=== PATIENT | female | born 2000 | race Caucasian/White ===

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

== ENCOUNTER → 2018-01-27 16:57 | Outpatient (CLI) | payer OTHER, SELFPAY ==
[2018-01-27 18:06] LABS: Internal QC Validated? YES +Cl - CLEAR BKGD; Pregnancy, Urine Negative Negative
== END ==
PROVIDERS: Family Provider Family Medicine; PCP Family Medicine; Visit Provider Dermatology Pediatric Dermatology
DX: L70.0 Acne vulgaris (principal); Z79.899 Other long term (current) drug therapy
CPT/HCPCS: 81025

== ENCOUNTER → 2018-03-03 16:21 | Outpatient (CLI) | payer OTHER, SELFPAY ==
[2018-03-03 19:01] LABS: Internal QC Validated? YES +Cl - CLEAR BKGD; Pregnancy, Urine Negative Negative
== END ==
PROVIDERS: Family Provider Family Medicine; PCP Family Medicine; Visit Provider Physician Assistant
DX: L70.0 Acne vulgaris (principal); Z79.899 Other long term (current) drug therapy
CPT/HCPCS: 81025

== ENCOUNTER → 2018-04-15 10:34 | Outpatient (CLI) | payer OTHER, SELFPAY ==
[2018-04-15 12:23] LABS: Internal QC Validated? YES +Cl - CLEAR BKGD; Pregnancy, Urine Negative Negative
== END ==
PROVIDERS: Family Provider Family Medicine; PCP Family Medicine; Referring Provider Dermatology Pediatric Dermatology; Visit Provider Dermatology Pediatric Dermatology
DX: L70.0 Acne vulgaris (principal); Z79.899 Other long term (current) drug therapy
CPT/HCPCS: 81025

== ENCOUNTER → 2018-05-19 16:35 | Outpatient (CLI) | payer OTHER, SELFPAY ==
[2018-05-19 18:55] LABS: Internal QC Validated? YES +Cl - CLEAR BKGD; Pregnancy, Urine Negative Negative
--- OUTSIDE RECORDS SUMMARY | 2018-07-06 01:49 | XMS RPT_ITS ---
:2000 Author Organization OH[facility] Care Team Providers Name Role Phone Margo Durán PA-C Attending Unavailable Margo Durán-C Referring Unavailable Pat, Duarte Primary Care Unavailable Margo Durán PA-C Attending Unavailable Margo DuránC Referring Unavailable Pat, Duarte Primary Care Unavailable Margo Durán PA-C Attending Unavailable Margo DuránC Referring Unavailable Pat, Duarte Primary Care Unavailable Margo Durán PA-C Attending Unavailable Luis Armando, Margo PA-C Referring Unavailable Pat, Duarte Primary Care Unavailable Margo DuránC Attending Unavailable Pat, Duarte Primary Care Unavailable Lakeshia Floresen Attending Unavailable Lala Flores Referring Unavailable Pat Duarte Primary Care Unavailable Marog Durán PA-C Attending Unavailable Margo Durán PA-C Referring Unavailable Pat Duarte Primary Care Unavailable Lala Flores Attending Unavailable Lala Flores Referring Unavailable Duarte Stewart Primary Care Unavailable PROBLEMS PROBLEMS DATE TYPE CONDITION / CODE ATTENDING STATUS SOURCE 04/15/2018 Unknown L70.0 - Acne Lala Flores Active [facility] vulgaris / Community L70.0(ICD-10) Hospital Repository 01/27/2018 Unknown Z79.899 - Other Lala Flores Active [facility]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 If is still suspected, a first morning urine specimen should be collected 48 hours later and tested. Performed By: #### L400.7600 #### [facility] [address] [place], [place], [address] ,URINE Collected: 04/15/2018 Status: F Source: [place] 10:37 AM [facility] REPOSITORY TYPE CODE TESTS RESULT OUT OF REFERENCE UNITS RANGE LAB L400.8000 Negative Normal HCGUQUAL Negative Result Comment: Very dilute urine specimens, as indicated by a low specific gravity, may not contain telephone services sales representative levels of hCG. If is still suspected, a first morning urine specimen should be collected 48 hours later and tested. Performed By: #### L400.7600 #### [facility] [address] [place], [place], [id number] ,URINE Collected: 03/03/2018 Status: F Source: [place] 4:26 PM [facility] REPOSITORY TYPE CODE TESTS RESULT OUT OF REFERENCE UNITS RANGE LAB L400.8000 Negative Normal HCGUQUAL Negative Result Comment: Very dilute urine specimens, as indicated by a low specific gravity, may not contain telephone services sales representative levels of hCG. If is still suspected, a first morning urine specimen should be collected 48 hours later and tested. Performed By: #### L400.7600 #### [facility] [address] [facility] [address] [place], [address] ,URINE Collected: 01/27/2018 Status: F Source: [place] 5:01 PM [facility] REPOSITORY TYPE CODE TESTS RESULT OUT OF REFERENCE UNITS RANGE LAB L400.8000 Negative Normal HCGUQUAL Negative Result Comment: Very dilute urine specimens, as indicated by a low specific gravity, may not contain telephone services sales representative levels of hCG. If is still suspected, a first morning urine specimen should be collected 48 hours later and tested. Performed By: #### L400.7600 #### [facility] [address] [facility] [address] [facility] [address] [place], [place], [address] CBC W/DIFF, AUTOMATED Collected: 12/25/2017 Status: F Source: [place] 9:22 AM [facility] REPOSITORY TYPE CODE TESTS RESULT OUT OF RANGE REFERENCE UNITS LAB L100.1000 4.4-11.0 K/mm3 Low WBC 4.1 LAB L100.1200 4.2-5.4 M/mm3 Normal RBC 4.68 LAB L100.1300 12.0-15.0 g/dl Normal HGB 13.1 LAB L100.1400 37-47 % Normal HCT 41.3 LAB L100.1500 81-99 fL Normal MCV 88.2 LAB L100.1600 27.0-32.0 pg Normal MCH 28.0 LAB L100.1700 32-36 g/gl Low MCHC 31.7 LAB L100.1810 11.6-14.6 % Normal RDW CV 12.6 LAB L100.1820 35.1-43.9 fl Normal RDW SD 40.5 LAB L100.1900 150-450 K/mm3 Normal PLT 339 LAB L100.2000 6.2-12.0 fl Normal MPV 9.5 LAB L100.2100 47-70 % Low NEUT% 30.0 LAB L100.2200 19-41 % High LY% 44.6 LAB L100.2300 0-10 % High MONO% 22.5 LAB L100.2400 0-5 % Normal EO% 2.2 LAB L100.2500 0-1 % Normal BASO% 0.7 LAB L100.2550 0.0-0.9 % Normal IM GRAN % 0.000 Result Comment: IG% - Immature Granulocytes (promyelocytes, myelocytes and metamyelocytes) > 1% indicates that a LEFT SHIFT is Present. LAB L100.2620 2.0-7.7 X10 3/uL Low Absolute Neut 1.2 LAB L100.2720 0.83-4.51 X10 3/ul Normal Absolute Lymph 1.84 Performed By: #### L100.0100 #### [facility] [address] [place], [address] COMPREHENSIVE METABOLIC Collected: 12/25/2017 Status: F Source: [facility] 9:22 AM [facility] REPOSITORY TYPE CODE TESTS RESULT OUT OF RANGE REFERENCE UNITS LAB L501.0100 74-106 mg/dL Normal GLU 77 Result Comment: Please note revised GLUCOSE reference range effective 2017. LAB L501.1000 7-18 mg/dL Normal BUN 10 LAB L501.1100 0.55-1.02 mg/dL Normal CREAT,SERUM 0.83 Result Comment: The validity of the calculated GFR AND GFRAA in patients over 70 years has not been determined. Clinical correlation is essential. LAB L501.1110 >60 mL/min Normal EST GFR 93 Result Comment: Non- GFR Calc LAB L501.1115 >60 mL/min Normal EST GFR - AA 112 Result Comment: GFR Calc LAB L501.1300 10-20 RATIO Normal BUN/CRE 12.0 LAB L501.1500 6.4-8.2 g/dL T Normal PROT 7.5 LAB L501.1800 3.2-5.0 g/dL Normal ALB 3.5 LAB L501.1950 2.2-4.2 g/dL Normal GLOB 4.0 LAB L501.2000 0.9-2.4 RATIO Normal A/G 0.9 LAB L501.2200 8.5-10.1 mg/dL CA Normal 8.8 LAB L501.4100 15-37 U/L Normal AST 15 LAB L501.4305 45-117 U/L Normal ALK P 55 LAB L501.4405 13-56 U/L Normal ALT 18 LAB L501.4600 0.20-1.00 mg/dL T Normal BILI 0.50 LAB L501.5300 136-145 mmol/L NA Normal 142 LAB L501.5600 3.5-5.1 mmol/L K Normal 4.3 LAB L501.5900 98-107 mmol/L CL Normal 106 LAB L501.6100 21.0-32.0 mmol/L Normal CO2 29.0 LAB L501.6200 5-15 Normal GAP 7 Performed By: #### L500.4050, L500.4100 #### [facility] [address] [place], [place], [address] LIPID PROFILE Collected: 12/25/2017 Status: F Source: [place] 9:22 AM [facility] REPOSITORY TYPE CODE TESTS RESULT OUT OF RANGE REFERENCE UNITS LAB L501.4900 200 mg/dL High CHOL 222 Result Comment: <200 mg/dL Desirable 200-240 mg/dL Borderline >240 mg/dL High Risk LAB L501.5000 mg/dL Normal TRIG 77 Result Comment: The drugs N-Acetylcysteine and Metamizole may falsely depress this assay. Serum Triglycerides Reference Interval Normal <150 mg/dL Borderline high 150 - 199 mg/dL High 200 - 499 mg/dL Very High > or = 500 mg/dL LAB L501.6400 mg/dL Normal HDL 49 Result Comment: The drugs N-Acetylcysteine and Metamizole may falsely depress this assay. Reference Range HDL <40 mg/dL Low HDL Cholesterol HDL >or= 60 mg/dL High HDL Cholesterol LAB L501.6500 0-130 mg/dL High LDL 158 LAB L501.6600 5-40 mg/dL Normal VLDL 15 Performed By: #### L500.4050, L500.4100 #### [facility] [address] [place], [place], [address] ,URINE Collected: 12/23/2017 Status: F Source: [place] 3:42 PM [facility] REPOSITORY TYPE CODE TESTS RESULT OUT OF REFERENCE UNITS RANGE LAB L400.8000 Negative Normal HCGUQUAL Negative Result Comment: Very dilute urine specimens, as indicated by a low specific gravity, may not contain telephone services sales representative levels of hCG. If is still suspected, a first morning urine specimen should be collected 48 hours later and tested. Performed By: #### L400.7600 #### [facility] [address], [address] DOWNTIME REPORT Observed: 11/28/2017 Status: F Source: [place] 2:05 PM [facility] REPOSITORY [facility] Medical Records Department [address] [place] [address] Downtime Report MR#: [id number] Acct: [id number] Name: SUKI LAURENT Rep #: [id number] : 2000 17 From: Faizan Meier PCP: Duarte Stewart MD Status: REG CLI This patient was seen during an EMR downtime November 11, 2017 - November 18, 2017. This patient may have a combination of paper and electronic documentation or all paper documentation. All documentation is viewable within the e-chart portion of [facility] for each patient visit. ,URINE Collected: 11/11/2017 Status: F Source: [place] 3:17 PM [facility] REPOSITORY Order Comment: RESULT(S) PREVIOUSLY REPORTED ON MANUAL REQUISITION DURING DOWNTIME. TYPE CODE TESTS RESULT OUT OF REFERENCE UNITS RANGE LAB L400.8000 Negative Normal HCGUQUAL Negative Result Comment: Very dilute urine specimens, as indicated by a low specific gravity, may not contain telephone services sales representative levels of hCG. If is still suspected, a first morning urine specimen should be collected 48 hours later and tested. Performed By: #### L400.7600 #### [facility] [address] [place], [address] ,URINE Collected: 10/04/2017 Status: F Source: [place] 4:45 PM [facility] REPOSITORY TYPE CODE TESTS RESULT OUT OF REFERENCE UNITS RANGE LAB L400.8000 Negative Normal HCGUQUAL Negative Result Comment: Very dilute urine specimens, as indicated by a low specific gravity, may not contain telephone services sales representative levels of hCG. If is still suspected, a first morning urine specimen should be collected 48 hours later and tested. Performed By: #### L400.7600 #### [facility] [address] [place], [address] PROGRESS Observed: 07/31/2017 Status: COMPLETED Source: [place] 5:10 PM [facility] REPOSITORY HNO ID: [id number] Author: Maryam Sharma (Florian) JENARO Aquino Service: (none) Author Type: Nurse Practitioner Type: Progress Notes Filed: 07/31/2017 5:37 PM Note Text: Subjective HPI Patient presents with: Nasal Congestion: nasal drainage, cough x 2 weeks Denies hx of asthma, bronchitis, pneumonia or smoking. Denies any otc treatment for symptoms. Review of Systems Constitutional: Positive for fever (low grade). Negative for chills and malaise/fatigue. HENT: Positive for congestion, ear pain (pressure), sinus pain and sore throat. Eyes: Negative for discharge and redness. Respiratory: Positive for cough. Negative for hemoptysis, sputum production, shortness of breath and wheezing. Gastrointestinal: Negative for abdominal pain, diarrhea, nausea and vomiting. Skin: Negative for rash. Neurological: Positive for headaches. No past medical history on file. No past surgical history on file. ALLERGIES Review of patient's allergies indicates no known allergies. MEDICATIONS No prescriptions on file. No family history on file. Social History Substance Use Topics - Smoking status: Never Smoker - Smokeless tobacco: Never Used - Alcohol use Not on file Objective Physical Exam Constitutional: She is well-developed, well-nourished, and in no distress. HENT: Head: Normocephalic. Right Ear: Tympanic membrane, external ear and ear canal normal. Left Ear: Tympanic membrane, external ear and ear canal normal. Nose: Mucosal edema present. Right sinus exhibits maxillary sinus tenderness and frontal sinus tenderness. Left sinus exhibits maxillary sinus tenderness and frontal sinus tenderness. Mouth/Throat: Posterior oropharyngeal erythema (PND) present. Eyes: Conjunctivae are normal. Neck: Normal range of motion. Neck supple. Cardiovascular: Normal rate, regular rhythm and normal heart sounds. Pulmonary/Chest: Effort normal. No respiratory distress. She has no wheezes. She has rhonchi (faint scattered rhonchi in b/l lower lobes). Abdominal: Soft. She exhibits no distension. There is no tenderness. Lymphadenopathy: She has no cervical adenopathy. Skin: Skin is warm and dry. No rash noted. Nursing note and vitals reviewed. ASSESSMENT/PLAN: 1. Sinobronchitis - ICD9: 473.9, 490, ICD10: J32.9, J40 - Will begin treatment with Augmentin 875 mg PO BID for 10 days - The patient should also be given OTC decongestants prn, OTC cough and cold meds as needed, warm salt water gargles, throat lozenges and/or OTC throat spray as needed and nasal saline gtts and suction prn for the first 5-7 days of treatment. - Supportive care with plenty of fluids, rest, and analgesia prn. - Follow up in 3-5 days if symptoms persist or worsen. Prescription instructions reviewed with patient as applicable. Patient advised if symptoms do not improve or if symptoms worsen sooner, to contact their primary care physician. Potential red flag symptoms discussed with the patient. Reviewed appropriate action plan to take if red flag symptoms occur. Patient agreeable to treatment plan. Maryam Aquino CNP ALLERGIES ALLERGIES No Allergies Records FoundENCOUNTERS ENCOUNTERS ADMIT/DISCHARGE ACCOUNT ADMITTING ENCOUNTER LOCATION SOURCE NUMBER CLASS 05/19/2018 [id number] [facility] ing:[facility]LAB Repository 04/15/2018 [id number] [facility] ing:[facility]LAB Repository 03/03/2018 [id number] [facility] ing:MTLAB Repository 01/27/2018 [id number] [facility] ing:MTLAB Repository 12/25/2017 [id number] [facility] ing:LAB.FUTUR Repository E 12/23/2017 [id number] [facility] ing:MTLAB Repository 11/11/2017 [id number] [facility] ing:MTLAB Repository 10/04/2017 [id number] [facility] ing:LAB Repository 07/31/2017/08/06/19 [id number] [address]ulatory [address] Repository PAYERS PAYERS ENCOUNTER GUARANTOR PAYER SUBSCRIBER SOURCE 05/19/2018 SUKI Rasmussen Primary Insurance:Valery ROQUEERMUHKARLIEUNK [place] [id number] [facility] [id number] [place], [place] [id number] Repository [address]Vgd: (304) Date:6239-56-20WT [phone] (HP) [address] [place] [phone]: 05/19/2018 Secondary NOT GIVENUNK Madan Insurance:SELF PAY Community [facility]: Effective Repository Date:2018-05-19 04/15/2018 SUKI Rasmussen Primary Insurance:UMR EDWARD INDERMUHLEUNK Madan [id number] BRII [id number] Number: [place], [place] [id number] Repository [address]Jrf: (304) Date:1286-59-18EA [phone] () [address] [place] [phone]: 04/15/2018 Secondary NOT GIVENUNK [place] Insurance:SELF PAY Community [facility] Number: Effective Repository Date:2018-04-15 03/03/2018 SUKI Rasmussen Primary Insurance:UMR EDWARD INDERMUHLEUNK Madan [id number] BRII [id number] [facility] Number: [place], [place] [id number] Repository [address]Nxx: (304) Date:1140-48-77DJ [phone] () [address] [place] [phone]: 03/03/2018 Secondary NOT GIVENUNK Madan Insurance:SELF PAY Community [facility] Number: Effective Repository Date:2018-03-03 01/27/2018 SUKI Rasmussen Primary Insurance:UMR EDWARD INDERMUHLEUNK [place] [id number] BRII [id number] [facility] Number: [place], [place] [id number] Repository [address]Rfc: (304) Date:6235-91-48YU [phone] () [address] [place] [phone]: 01/27/2018 Secondary NOT GIVENUNK Madan Insurance:SELF PAY Community [facility] Number: Effective Repository Date:2018-01-27 12/25/2017 SUKI Rasmussen Primary Insurance:UMR EDWARD INDERMUHLEUNK Madan [id number] BRII [id number] [facility] Number: [place], [place] [id number] Repository [address]Zzt: (304) Date:1021-52-64QO [phone] () [address] [place] [phone]: 12/25/2017 Secondary NOT GIVENUNK [place] Insurance:SELF PAY Community [facility] Number: Effective Repository Date:2017-12-23 12/23/2017 SUKI Rasmussen Primary Insurance:UMR EDWARD INDERMUHLEUNK [place] [id number] BRII [id number] [facility] Number: [place], [place] [id number] Repository [address]Eui: (304) Date:7106-71-40VU [phone] () [address] [place] [phone]: 12/23/2017 Secondary NOT GIVENUNK Madan Insurance:SELF PAY Community [facility] Number: Effective Repository Date:2017-12-23 11/11/2017 SUKI Rasmussen Primary Insurance:UMR EDWARD INDERMUHLEUNK [place] [id number] BRII [id number] Number: [place], [place] [id number] Repository [address]Utb: (304) Date:0322-51-64XN [phone] () [address] [place] [phone]: 11/11/2017 Secondary NOT GIVENUNK [place] Insurance:SELF PAY Community [facility] Number: Effective Repository Date:2017-11-11 10/04/2017 SUKI Rasmussen Primary Insurance:UMR EDWARD INDERMUHLEUNK Madan [id number] BRII [id number] Number: [place], [place] [id number] Repository [address]Sut: (304) Date:9076-34-65IN [phone] () [address] [place] [phone]: 10/04/2017 Secondary NOT GIVENUNK Madan Insurance:SELF PAY [facility]: Effective Repository Date:2017-10-04
== END ==
PROVIDERS: Family Provider Family Medicine; PCP Family Medicine; Referring Provider Physician Assistant; Visit Provider Physician Assistant
DX: L70.0 Acne vulgaris (principal)
CPT/HCPCS: 81025

== ENCOUNTER → 2023-04-25 | Outpatient (CLI) | payer BC, SELFPAY ==
[2023-04-25 09:56] LABS: Absolute Lymphocyte Count 2.02 X10^3/uL (0.83-4.51); Absolute Neutrophil Count 3.7 X10^3/uL (2.0-7.7); Basophil# 0.07 X10^3/uL; Eosinophils% 1.5 % (0-5); Hematocrit 38.7 % (37-47); Hemoglobin 12.7 g/dL (12.0-15.0); Lymphocyte # 2.02 X10^3/ul (0.83-4.51); Lymphocyte % 30.1 % (19-41); Mean Corp Hgb Conc 32.8 g/dL (32-36); Mean Corpuscular Hgb 28.6 pg (27.0-32.0); Mean Corpuscular Volume 87.2 fL (81-99); Mean Platelet Vol. 8.9 fl (6.2-12.0); Monocyte# 0.81 X10^3/uL; Monocyte% 12.1 % (0-10); NRBC Flagged by Analyzer 0 % (0-5); Neutrophil % 55.2 % (47-70); Platelet Count 400 K/mm3 (150-450); RBC Distribution Width CV 11.5 % (11.6-14.6); RBC Distribution Width SD 36.5 fl (35.1-43.9); Red Blood Count 4.44 M/mm3 (4.2-5.4); White Blood Count 6.7 K/mm3 (4.4-11.0)
[2023-04-25 10:56] LABS: HIV - WCH Non-Reactive (Nonreactive); Hepatitis B Surface Antigen Non-Reactive (Nonreactive); Hepatitis C Antibody Non-Reactive (Nonreactive); Rubella IgG Reactive (Nonreactive); Syphilis Antibodies Non-reactive
[2023-04-30 08:12] LABS: Chlamydia By Nucleic Acid AMP Negative (Negative); Gonococcus By Nucleic Acid AMP Negative (Negative)
== END | disposition home or self-care (01) ==
PROVIDERS: PCP Family Medicine; Referring Provider Advanced Practice Midwife; Visit Provider Advanced Practice Midwife
DX: Z34.90 Encounter for supervision of normal pregnancy, unspecified, unspecified trimester (principal); Z3A.00 Weeks of gestation of pregnancy not specified
CPT/HCPCS: 36415; 85025; 86703; 86762; 86780; 86803; 86850; 86900; 86901; 87086; 87340; 87491; 87591

== ENCOUNTER 2023-05-24 15:28 | Day surgery (SDC) | payer BC, SELFPAY ==
[2023-05-24] VITALS (8 sets, daily range): BP systolic 87–105; BP diastolic 58–72; PULSE 66–89; RESP 16–18; TEMP 36.4–37; O2SAT 97–100; BMI 18.7
--- NOTE | 2023-05-24 | POC_PTH ---
PATIENT: SUKI BLAKELY [place] [facility] [place][id number] AGE/SX: 23/F ROOM: RE05/24/[address]: Dr. Carolynn Ochoa MD : 2000 BED: DIS: 05/24/2023 SPEC #: [id number] RECD: 05/24/23 19:52 STATUS: AIDAN VILLARREAL #: [id number] BREANA: 05/24/23 00:[address]: Carolynn Ochoa DEPT: SURGICAL PATHOLOGY RECD BY: Vasquez Morin ENTERED: 05/27/23 09:37 SP TYPE: PROD CONC OTHR DR: Dr. Duarte Stewart MD Tissues: Product of conception, NOS Procedures: Surgery Specimen Level IV HEADER OPERATION: Dilation and Curettage, Suction PRE-OP DIAGNOSIS: Missed TISSUE SUBMITTED: Products of conception MICROSCOPIC DIAGNOSIS Endometrium, curettage: Chorionic villi, decidualized stroma and trophoblastic cells (products of conception). AM:donna 05/29/2023 MICROSCOPIC DESCRIPTION Slides are reviewed. GROSS DESCRIPTION Received fresh is one container labeled with the patient's name and designated products of conception. The specimen consists of multiple irregular fragments of pink hemorrhagic araiza soft tissue that in aggregate measure 10.0 x 8.0 x 2.0 cm. tissue is not identified. Eligibility Manager tissue is submitted for Anora study. Eligibility Manager tissue is also submitted in one cassette. / AM:donna 05/27/2023 TC:5 CPT: [id number] ADDENDUM ADDENDUM ADDENDUM ADDENDUM ADDENDUM ADDENDUM ADDENDUM ADDENDUM 06/26/2023 09:01 ADDENDUM 06/26/2023 09:01 ADDENDUM 06/26/2023 09:01 ADDENDUM 06/26/2023 09:01 ADDENDUM 06/26/2023 09:01 ANORA MICROARRAY CHROMOSOME ANALYSIS WITH PARENTAL SUPPORT RESULT: Normal male MICROARRAY RESULT: arr(1-22)x2,(XY)x1 CLINICAL INTERPRETATION: Normal male result. Please see complete report in e-chart or EMR
[2023-05-24] MEDS: Doxycycline 100 MG CAPSULE PO (15:53)
[2023-05-24] MEDS: Lactated Ringers 1,000 ML 15 ML IV (15:58)
[2023-05-24 16:08] LABS: Hematocrit 35.4 % (37-47); Hemoglobin 11.8 g/dL (12.0-15.0); Mean Corp Hgb Conc 33.3 g/dL (32-36); Mean Corpuscular Hgb 29.1 pg (27.0-32.0); Mean Corpuscular Volume 87.4 fL (81-99); Mean Platelet Vol. 8.8 fl (6.2-12.0); Platelet Count 321 K/mm3 (150-450); RBC Distribution Width CV 11.9 % (11.6-14.6); RBC Distribution Width SD 37.9 fl (35.1-43.9); Red Blood Count 4.05 M/mm3 (4.2-5.4); White Blood Count 8.5 K/mm3 (4.4-11.0)
--- NOTE | 2023-05-24 18:43 | HP.PCM_ITS ---
History and Physical Intake Vital Signs 04/25/2308:59 05/24/2308:41 05/24/2308:42 Height 5 ft 3 in 5 ft 3 in 5 ft 3 in Weight: 110 lb 2 oz BMI 19.5 BP 110/73 Intake Visit Reasons: 13 WK OB Jet Inspector Required: No Is patient in pain?: No Allergies No Known Allergies Allergy (Verified 05/24/23 08:41) Medications multivitamin no.47-iron fum 27 mg-folate no.1 1 mg-dha 300 mg capsule (PNV-DHA) cap PO 04/19/23 [History Confirmed 05/24/23] Last Menstrual Period: 02/22/23 Zika: Zika virus screening: Negative : No PFSH PFSH Family History Grandfather DiabetesMother Melanoma, Onset Age: 35 Social History adopted: No household members: spouse current occupational status: employed current occupation: [employer] current occupational exposures/hazards: No pets and animals: Yes pets and animals: dog(s) history of recent travel: [place] ([place]) out of state: Yes out of country: No sexually active: Yes Smoking Status: Never smoker alcohol intake: never substance use type: does not use diet: lactose free well-balanced diet: daily or most days caffeine: No eating out: 1-3 times/week during the past year weight has: remained stable what type of physical activity do you participate in: none katerin/baptism: Restorationist seatbelt use: always do you feel safe at home: Yes additional social history: - [employer]- [employer] History 1 Elective abortions Hx Para 0 Spontaneous abortions Hx # Term Pregnancies Ectopic pregnancies Hx # Pregnancies Multiple births # of living children HPI 13 WK OB Details: SUKI BLAKELY is a 23 year old who presents for routine OB visit. upon evaluation miscarriage diagnosed with no FHT measuring behind and no FHT seen. confirmed with Dr alfredo and amadeo taylor. OB Visit JYOTSNA Calculator Estimated Delivery Date Method Current WG Current Estimate 11/29/23 LMP (Certain) 13w 0d Expected Delivery Route/Plan Labor Preferences- CB/BF classes: [] labor support person: [] labor intervention preferences: [] pain management options preferred: [] cut cord/dad catch: [] : [] PP control planned: [] discussed possible routes of delivery and associated risks: [] special requests: [] Specific Issue/Plans Covid status: [] Flu vaccine: [] Tdap vaccine: [] Rhogam: [] LARC form signed: [] Problem list reviewed and updated with the most current plan of care details and appropriate orders placed. Relevant counseling for the gestational age provided. Continue routine care and follow up unless otherwise noted in visit notes/problem list details Initial Weight: Not Recorded Date -?-?-?-?-?-?-?-?-?-?-?-?- EGA Weight BP Urine Prot -?-?-?-?-?-?-?-?-?-?-?-?- Glucose FHR FuHt Pres Dilation -?-?-?-?-?-?-?-?-?-?-?-?- Effaced St Visit Note 04/25/23-?-?-?-?-?-?-?-?-?-?-?-?- 8w 6d 108 lb 8 oz 98/65 -?-?-?-?-?-?-?-?-?-?-?-?- 175 -?-?-?-?-?--?-?-?-?-?-?-?- KW-CRL 17. cost with dates. declines NIPT 05/24/23-?-?-?-?-?-?-?-?-?-?-?-?- 13w 0d 110 lb 2 oz 110/73 Negative -?-?-?-?-?-?-?-?-?-?-?-?- Negative 0 -?-?-?-?-?-?-?-?-?-?-?-?- LC- no HR, debris in uterus.no outline of fetus. +fluid around uterus. confirmed with JV.will obtain D&C consent signed. will be NPO. forget me not provided. LC- no HR, debris in uterus.no outline of fetus. +fluid around uterus. confirmed with JV.consulted and she discussed options and plan fo care with pt.will obtain D&C consent signed. will be NPO. forget me not provided. ACOG First Trimester First Trimester: Second Trimester Second Trimester: Signs and Symptoms of Labor, Selecting a care provider, Reproductive Life Planning & Contreception, Care Planning, Depression/Anxiety and Intimate Partner Violence; Discussed Tobacco Cessation Third Trimester Third Trimester: Pain Management Plans, Labor support person(s), Immediate Larc, Signs and Symptoms of Preeclampsia, Feeding Yes , [place] Education and Family Medical Leave or Disability Forms ROS ROS Const Reports system reviewed and no additional complaints, except as documented Card Reports system reviewed and no additional complaints, except as documented Resp Reports system reviewed and no additional complaints, except as documented GI Reports system reviewed and no additional complaints, except as documented, Reports nausea Reports system reviewed and no additional complaints, except as documented Musc Reports system reviewed and no additional complaints, except as documented all other systems reviewed and negative Exam Exam Const General: cooperative, healthy appearing, comfortable HENMT Head: normal to inspection Nose: external nose normal Face and sinus: normal facial exam Neck Neck: normal visual inspection, full ROM, no lymphadenopathy Thyroid: thyroid normal Chest Chest palpation & inspection: normal inspection of the chest Resp Effort & Inspection: normal respiratory effort GI Inspection: normal to inspection soft NTTP Extrem General: pedal edema Results POC Urinalysis 2 Dip (Clinic) Office Urine Glucose Negative Last Edit by Raven Pitt MA on 05/24/23 08:47 Office Urine Protein Negative Last Edit by Raven Pitt MA on 05/24/23 08:47 Coding Level of Care Code OB Routine Diagnoses Missed O02.1 Assessment and Plan Assessment and Plan (1) Missed : Status: Acute Comment: 13 weeks missed AB, to obtain D&C. desires genetics Orders: Orders POC Urinalysis 2 Dip (Clinic) Today Plan Details Additional Comments: D&C today NPO consent signed. O positive blood type
--- NOTE | 2023-05-24 18:58 | PCM.OPRPT ---
Problems Associated Problem List Diagnoses (1) Missed : Report of Operation Date of Procedure: 05/24/23 Pre-Operative Diagnosis: see problem list Post-Operative Diagnosis: same Surgery/Procedure Performed:: Suction dilation and curettage Description of Surgical Findings:: no FHT present, Nonviable 13 weeks Surgeon: Carolynn Ochoa sas programmer: None Type of Anesthesia: Local MAC Special Medications: none Specimen's removed: POC Drains: none Estimated Blood Loss (mL): 200 Fluids Replaced: crystalloid Description of Procedure: Patient was taken to the operating room and placed under MAC local anesthesia. She was prepped and draped in the normal sterile fashion the dorsal lithotomy position. Bladder was drained of clear urine and anterior lip of the cervix was grasped and the uterus sounded to 11. Cervix was progressively dilated to allow passage of a 11mm suction curette. Progressive passes were made removing the retained products of conception without complication. Sharp curettage confirmed complete removal of the retained products. All instruments were removed from the vagina and excellent hemostasis was noted and the patient was taken to recovery in stable condition. Grafts/Implants Used: none Procedure Start Time: 19:09 Procedure Stop Time: 19:29 Complications none Admit VTE Documentation VTE Present on Admission: No VTE Mechan Device Prophylaxis: SCD's Procedures Urinary/Genital [id number]: [id number] Surg Trtmt missed Ab, 1TM
--- NOTE | 2023-05-24 18:59 | DCINST_ITS ---
Discharge Instructions Diet Discharge Diet: No restrictions Activity Discharge Activity: Return to Normal Activity, May Shower and May Take a Tub Bath (after 1 week) May resume sexual activity in: 1-2 weeks Weight Bearing Status: Weight bearing as tolerated Lifting Restrictions: none Dressing / Incision Call your doctor if you observe: Fever of 101 or Higher, Using more than 1 pad per hour, Shortness of breath and Uncontrolled pain Follow Up Care Please Follow Up With: Carolynn Ochoa MD When: Call [phone] to schedule appointment. Test Results: Test results from this visit will be discussed in further detail at your follow- up appointment, if applicable. Discharge Plan Admission Attending Provider: Carolynn Ochoa Primary Care Provider: Duarte Stewart Discharge Orders/Prescriptions Prescriptions: No Action PNV-DHA 27 mg iron-1 mg -300 mg capsule 1 cap PO DAILY pyridoxine (vitamin B6) 50 mg tablet 50 mg PO DAILY Referrals / Follow Up: Duarte Stewart MD [Primary Care Provider] - Disposition Disposition (needs filled in before D/C Order can be placed): Home, Self Care
[2023-05-24] MEDS: miSOPROStol 200 MCG Tablet (19:25)
[2023-05-24] MEDS: Oxytocin 10 UNITS/ML Vial (19:31)
[2023-05-24 23:04] LABS: Pathology Specimen OB SEE PATHOLOGY REPORT
== END 2023-05-24 20:40 | disposition home or self-care (01) ==
LOC: SDC 15:30 → AC 15:31
PROVIDERS: PCP Family Medicine; Referring Provider Obstetrics & Gynecology; Visit Provider Obstetrics & Gynecology
PROC: (CPT 59820; principal; 2023-05-24 17:45)
DX: O02.1 Missed abortion (principal)
CPT/HCPCS: 59820; 01965; 85027; 86850; 86900; 86901; 88305; J7120; A4216; J2405

== ENCOUNTER → 2023-05-27 | Outpatient (CLI) | payer BC, SELFPAY | END | disposition home or self-care (01) | LOC: PAVLAB 09:54 | PROVIDERS: PCP Family Medicine; Referring Provider Obstetrics & Gynecology; Visit Provider Obstetrics & Gynecology | DX: O02.1 Missed abortion (principal) | CPT/HCPCS: 36415 ==

== ENCOUNTER → 2023-10-04 | Outpatient (CLI) | payer BC, SELFPAY ==
[2023-10-04 13:32] LABS: Vitamin D,25 Hydroxy 95.3 ng/mL
[2023-10-04 13:53] LABS: Thyroid Stim Hormone (TSH) 0.58 uIU/mL (0.358-3.74)
[2023-10-10 11:09] LABS: HPV APTIMA, High Risk Negative (Negative)
== END | disposition home or self-care (01) ==
PROVIDERS: PCP Family Medicine; Referring Provider Obstetrics & Gynecology; Visit Provider Obstetrics & Gynecology
DX: Z12.4 Encounter for screening for malignant neoplasm of cervix (principal); Z13.29 Encounter for screening for other suspected endocrine disorder; Z13.21 Encounter for screening for nutritional disorder
CPT/HCPCS: 36415; 82306; 84443; 88175; G0145

== ENCOUNTER → 2024-02-04 | Outpatient (CLI) | payer BC, SELFPAY ==
[2024-02-04 16:27] LABS: T4 Free Direct 0.81 ng/dL (0.76-1.46); Thyroid Stim Hormone (TSH) 0.749 uIU/mL (0.358-3.740)
== END | disposition home or self-care (01) ==
LOC: LAB 14:40
PROVIDERS: PCP Family Medicine; Referring Provider Advanced Practice Midwife; Visit Provider Advanced Practice Midwife
DX: N92.6 Irregular menstruation, unspecified (principal)
CPT/HCPCS: 36415; 84439; 84443

== ENCOUNTER → 2024-02-07 | Outpatient (CLI) | payer BC, SELFPAY ==
--- NOTE | 2024-02-07 16:25 | US_ITS ---
EXAM: US PELVIS TRANSABDOMINAL AND TRANSVAGINAL, COMPLETE CLINICAL INDICATION: Infertility/irregular menses TECHNIQUE: Transabdominal and transvaginal pelvic ultrasound was performed with grayscale and color Doppler imaging. Transvaginal imaging was used for better evaluation of the endometrium and adnexa. COMPARISON: No relevant prior studies available. FINDINGS: UTERUS/CERVIX: Retroverted uterus. There is no uterine mass. The uterus measures 6.2 x 4.5 x 3.8 cm. The endometrial stripe measures 0.3 cm in thickness. RIGHT OVARY: Numerous small follicles in the periphery of the right ovary. Blood flow is present in the right ovary. The right ovary measures 3.2 x 1.9 x 1.7 cm. LEFT OVARY: Numerous small follicles in the periphery of the left ovary. Blood flow is present in the left ovary. The left ovary measures 2.8 x 2.3 x 2.1 cm. FREE FLUID: None. BLADDER: Unremarkable as visualized. Wall is normal thickness for degree of distention. US/Pelvic w/ Transvaginal IMPRESSION: 1. Retroverted uterus. 2. Numerous small follicles in the periphery of the ovaries bilaterally may be due to polycystic ovary disease. Electronically Signed: Christopher Maldonado MD at 0:00 EDT ,
== END | disposition home or self-care (01) ==
PROVIDERS: PCP Family Medicine; Referring Provider Advanced Practice Midwife; Visit Provider Advanced Practice Midwife
DX: N92.6 Irregular menstruation, unspecified (principal)
CPT/HCPCS: 76830; 76856

== ENCOUNTER → 2024-03-02 | Outpatient (CLI) | payer BC, SELFPAY ==
[2024-03-04 08:12] LABS: PROGESTERONE 9.1 ng/mL (.)
== END | disposition home or self-care (01) ==
LOC: LAB 12:25
PROVIDERS: PCP Family Medicine; Referring Provider Advanced Practice Midwife; Visit Provider Advanced Practice Midwife
DX: E28.2 Polycystic ovarian syndrome (principal)
CPT/HCPCS: 36415; 84144

== ENCOUNTER → 2024-04-13 | Outpatient (CLI) | payer BC, SELFPAY ==
[2024-04-13 10:28] LABS: hCG Titer Quant., Serum 9 mIU/mL (1-3)
== END | disposition home or self-care (01) ==
PROVIDERS: PCP Family Medicine; Referring Provider Obstetrics & Gynecology; Visit Provider Obstetrics & Gynecology
DX: N91.2 Amenorrhea, unspecified (principal)
CPT/HCPCS: 36415; 84702

== ENCOUNTER → 2024-04-15 | Outpatient (CLI) | payer BC, SELFPAY ==
[2024-04-15 09:18] LABS: hCG Titer Quant., Serum 3 mIU/mL (1-3)
== END | disposition home or self-care (01) ==
LOC: LAB 08:24
PROVIDERS: PCP Family Medicine; Referring Provider Obstetrics & Gynecology; Visit Provider Obstetrics & Gynecology
DX: Z34.90 Encounter for supervision of normal pregnancy, unspecified, unspecified trimester (principal)
CPT/HCPCS: 36415; 84702

== ENCOUNTER → 2024-07-29 | Outpatient (CLI) | payer BC, SELFPAY ==
[2024-07-29 09:42] LABS: hCG Titer Quant., Serum 35 mIU/mL (1-3)
== END | disposition home or self-care (01) ==
PROVIDERS: PCP Family Medicine; Referring Provider Obstetrics & Gynecology; Visit Provider Obstetrics & Gynecology
DX: Z32.02 Encounter for pregnancy test, result negative (principal); Z87.59 Personal history of other complications of pregnancy, childbirth and the puerperium
CPT/HCPCS: 36415; 84702

== ENCOUNTER → 2024-07-31 | Outpatient (CLI) | payer BC, SELFPAY ==
[2024-07-31 11:48] LABS: hCG Titer Quant., Serum 40 mIU/mL (1-3)
== END | disposition home or self-care (01) ==
LOC: LAB 09:13
PROVIDERS: PCP Family Medicine; Referring Provider Advanced Practice Midwife; Visit Provider Advanced Practice Midwife
DX: Z34.90 Encounter for supervision of normal pregnancy, unspecified, unspecified trimester (principal); Z87.59 Personal history of other complications of pregnancy, childbirth and the puerperium
CPT/HCPCS: 36415; 84702

== ENCOUNTER → 2024-08-03 | Outpatient (CLI) | payer BC, SELFPAY ==
[2024-08-03 16:32] LABS: hCG Titer Quant., Serum 10 mIU/mL (1-3)
== END | disposition home or self-care (01) ==
LOC: LAB 15:52
PROVIDERS: PCP Family Medicine; Referring Provider Advanced Practice Midwife; Visit Provider Advanced Practice Midwife
DX: N91.2 Amenorrhea, unspecified (principal); Z87.59 Personal history of other complications of pregnancy, childbirth and the puerperium
CPT/HCPCS: 36415; 84702

== ENCOUNTER → 2024-10-30 | Outpatient (CLI) | payer BC, SELFPAY ==
[2024-10-30 17:22] LABS: Thyroid Stim Hormone (TSH) 0.715 uIU/mL (0.300-4.200)
[2024-11-03 16:08] LABS: Anti-Cardiolipin Ab, IgG, Qn < 9 GPL U/mL (0-14); Anti-Cardiolipin Ab, IgM, Qn < 9 MPL U/mL (0-12); Beta-2-Glycoprotein I IgA <9 (0-25); Beta-2-Glycoprotein I IgG <9 (0-20); Beta-2-Glycoprotein I IgM <9 (0-32); Dilute Prothrombin Time (dPT) 32.9 sec (0.0-47.6); Dilute Russell Viper Venom 32.9 sec (0.0-47.0); Interpretation Comment: (.); PTT-LA 34.5 sec (0.0-43.5); Thrombin Time 19.1 sec (0.0-23.0); dPT Confirm Ratio 0.98 Ratio (0.00-1.34)
== END | disposition home or self-care (01) ==
PROVIDERS: Obstetrics & Gynecology; PCP Family Medicine; Referring Provider Obstetrics & Gynecology; Visit Provider Obstetrics & Gynecology
DX: O02.1 Missed abortion (principal); N96 Recurrent pregnancy loss
CPT/HCPCS: 36415; 84443; 86146; 86147

== ENCOUNTER → 2025-03-11 | Outpatient (CLI) | payer OTHER, SELFPAY ==
[2025-03-11 16:03] LABS: hCG Titer Quant., Serum 36 mIU/mL (<9 non-preg)
== END | disposition home or self-care (01) ==
LOC: LAB 14:55
PROVIDERS: PCP Family Medicine; Referring Provider Advanced Practice Midwife; Visit Provider Advanced Practice Midwife
DX: Z34.90 Encounter for supervision of normal pregnancy, unspecified, unspecified trimester (principal)
CPT/HCPCS: 36415; 84702

== ENCOUNTER → 2025-03-13 | Outpatient (CLI) | payer OTHER, SELFPAY ==
--- OUTSIDE RECORDS SUMMARY | 2025-03-13 10:59 | XMS RPT_ITS | CCD ---
Author Organization [facility] Care Team Providers Care Sandwich Wrapper Name Role Phone Dr. Valentin Morrissey Primary Care Provider Dr. Valentin Morrissey Referring Provider ESPINOZA Armstrong Attending Provider [phone] ESPINOZA Taylor Attending Provider [phone] Dr. Carolynn Ochoa Attending Provider [phone] Dr. Carolynn Ochoa Referring Provider [phone] Dr. Carolynn Ochoa Other Provider [phone] Dr. Valentin Morrissey Primary Care Provider Dr. Valentin Morrissey Referring Provider Dr. Laurel Gill Attending Provider [phone] Valentin Morrissey MD Primary Care Provider VALENTIN MORRISSEY Primary Care Unavailable VALENTIN MORRISSEY Attending Unavailable VALENTIN MORRISSEY Primary Care Unavailable Valentin Morrissey Primary Care Provider VALENTIN MORRISSEY Primary Care Unavailabl Dr. Valentin Egan MD Primary Care Provider Dr. Carolynn Ochoa MD Attending Provider [phone] Dr. Carolynn Ochoa MD Referring Provider Dr. Valentin Morrissey MD Referring Provider Dr. Laurel Gill DO Attending Provider Dr. Laurel Gill DO Referring Provider Nathaniel DORAN, Ana Attending Provider Nathaniel DORAN, Ana Referring Provider Pat ESTRADA, Dr. Ramachandran Primary Care Provider Dr. Laurel Gill DO Attending Provider Dr. Laurel Gill DO Referring Provider Nathaniel DORAN, Ana Attending Provider [phone] Nathaniel DORAN, Ana Referring Provider [phone] Pat ESTRADA, Dr. Ramachandran Referring Provider Km DORAN, Amadeo Attending Provider Gabriela ESTRADA, Dr. Pradhan Attending Provider Dr. Carolynn Ochoa MD Referring Provider Ana Armstrong Attending Unavailable Ana Armstrong Referring Unavailable Pat, Valentin Primary Care Unavailable Pat, Valentin Primary Care Unavailable Ana Armstrong Attending Unavailable Ana Armstrong Referring Unavailable Pat, Valentin Primary Care Unavailable Carolynn Ochoa Attending Unavailable Carolynn Ochoa Referring Unavailable Pat, Valentin Primary Care Unavailable Carolynn Ochoa Attending Unavailable Carolynn Ochoa Referring Unavailable Laurel Gill Attending Unavailabl e Vande VelLaurel morocho Referring Unavailabl e Pat, Valentin Primary Care Unavailable Ana Armstrong Attending Unavailable Pat, Valentin Primary Care Unavailable Pat, Valentin Referring Unavailable Pat, Valentin Primary Care Unavailable Ana Armstrong Attending Unavailable Pat, Valentin Referring Unavailable Vande VelLaurel morocho Attending Unavailabl e Pat, Valentin Referring Unavailable Pat, Valentin Primary Care Unavailable Amadeo Taylor Attending Unavailable Pat, Valentin Referring Unavailable Pat, Valentin Primary Care Unavailable Ana Armstrong Attending Unavailable Ana Armstrong Referring Unavailable Pat, Valentin Primary Care Unavailable Ana Armstrong Attending Unavailable Ana Armstrong Referring Unavailable Pat, Valentin Primary Care Unavailable Carolynn Ochoa Attending Unavailable Carolynn Ochoa Referring Unavailable Pat, Valentin Primary Care Unavailable Ana Armstrong Attending Unavailable Ana Armstrong Referring Unavailable Pat, Valentin Primary Care Unavailable Medications Current Medications Medication Drug Class(es) Dates Sig (Normalized) Sig (Original) Multivit 55-Bbbi-Cowpxo 1-Dha (Pnv-Dha) 27 mg iron-1 mg -300 mg capsule (6 sources) Start: 04-19-2023 Multivit 27-Ygao-Qigypc 1-Dha (Pnv-Dha) 27 mg iron-1 mg -300 mg capsule Active 1 NMA PO DAILY April 19, 2023 1:00am Start: 04-19-2023 Multivit 47-Ir on-Folate 1-Dha (Pnv-Dha) 27 mg iron-1 mg -300 mg capsule Active 1 NMA PO DAILY April 19, 2023 12:00am Start: 04-19-2023 take 1 capsule by mo uth once daily Multivit 98-Opmy-Dcsrdf 1-Dha (Pnv-Dha) 27 mg iron-1 mg -300 mg capsule Active 1 CAP PO DAILY April 19, 2023 1:00am Start: 04-19-2023 take 1 capsule by mo uth once daily Multivit 41-Damz-Paphnt 1-Dha (Pnv-Dha) 27 mg iron-1 mg -300 mg capsule Active 1 CAP PO DAILY April 19, 2023 12:00am Start: 04-19-2023 Multivit 47-Ir on-Folate 1-Dha (Pnv-Dha) 27 mg iron-1 mg -300 mg capsule Active CAP PO April 19, 2023 12:00am Vit-Fe Fumarate-FA ( PO) (3 sources) Vit-Fe Fumarate-FA ( PO) Take by mouth. 0 Active valACYclovir 1000 mg oral tablet (1 source) Herpesvirus Nucleoside Analog DNA Polymerase Inhibitor, Herpes Simplex Virus Nucleoside Analog DNA Polymerase Inhibitor, Herpes Zoster Virus Nucleoside Analog DNA Polymerase Inhibitor Start: 4 End: 4 take 1 tablet by mouth three times daily valACYclovir (VALTREX) 1 gram tablet Indications: Herpes zoster without complication Take 1 tablet by mouth three times a day for 7 days. 21 tablet 0 12/20/2023 12/27/2023 Active vitamin b6 50 mg oral tablet (5 sources) Start: 3 take 1 tablet by mouth once daily Pyridoxine (Vitamin B6) 50 mg tablet Active 50 mg PO DAILY May 24, 2023 1:00am Completed/Discontinued Medications Medication Drug Class(es) Dates Sig (Normalized) Sig (Original) Norethindrone-Ethin Estradiol (12 sources) Estrogen Start: 08-17-2021 End: 09-24-2022 Norethindrone-Ethin Estradiol (Alyacen 1/35 (28)) 1-35 mg-mcg tablet Discontinued 1 {tbl} PO DAILY August 17, 2021 3:27pm September 24, 2022 10:05am take continuously Start: 08-17-2021 End: 09-24-2022 Norethindrone-Ethin Estradio l (Alyacen 1/35 (28)) 1-35 mg-mcg tablet Discontinued 1 {tbl} PO DAILY August 17, 2021 2:27pm September 24, 2022 9:05am take continuously Start: 08-17-2021 End: 09-24-2022 take [id number] ug by mouth once daily Norethindrone-Ethin Estradiol (Alyacen 1/35 (28)) 1-35 mg-mcg tablet Discontinued 1 TABLET PO DAILY August 17, 2021 3:27pm September 24, 2022 10:05am take continuously Start: 08-17-2021 End: 09-24-2022 take [id number] ug by mouth once daily Norethindrone-Ethin Estradiol (Alyacen 1/35 (28)) 1-35 mg-mcg tablet Discontinued 1 TABLET PO DAILY August 17, 2021 2:27pm September 24, 2022 9:05am take continuously Start: 08-17-2021 End: 08-17-2021 Norethindrone-Ethin Estradio l (Alyacen 1/35 (28)) 1-35 mg-mcg tablet Discontinued 1 {tbl} PO DAILY August 17, 2021 1:00am August 17, 2021 3:38pm Start: 08-17-2021 End: 08-17-2021 Norethindrone-Ethin Estradio l (Alyacen 1/35 (28)) 1-35 mg-mcg tablet Discontinued 1 {tbl} PO DAILY August 17, 2021 12:00am August 17, 2021 2:38pm Start: 08-17-2021 End: 08-17-2021 take [id number] ug by mouth once daily Norethindrone-Ethin Estradiol (Alyacen 1/35 (28)) 1-35 mg-mcg tablet Discontinued 1 TABLET PO DAILY August 17, 2021 1:00am August 17, 2021 3:38pm Start: 08-17-2021 End: 08-17-2021 take [id number] ug by mouth once daily Norethindrone-Ethin Estradiol (Alyacen 35 (28)) 1-35 mg-mcg tablet Discontinued 1 TABLET PO DAILY August 17, 2021 12:00am August 17, 2021 2:38pm letrozole 2.5 mg oral tablet (2 sources) Aromatase Inhibitor Start: 03-06-2024 End: 03-11-2024 Letrozole 2.5 mg tablet Discontinued 2.5 mg PO DAILY 5 March 06, 2024 12:00am March 10, 2024 12:00am March 11, 2024 12:08am take between days 3 and 7 of menstrual cycle Problems Active Problems Problem Classification Problem Date Documented Date Episodic/Chronic Anxiety disorders (12 sources) Anxiety; Translations: [Anxiety disorder, unspecified] Onset: 06-16-2021 08-17-2021 Chronic Female infertility (2 sources) Female infertility associated with anovulation; Translations: [Female infertility associated with anovulation] 05-22-2024 Chronic Comment on above: HSG Immunizations and screening for infectious disease (5 sources) Immunization due; Translations: [Encounter for immunization] Onset: 10-10-2023 10-10-2023 Episodic Menstrual disorders (5 sources) Irregular periods; Translations: [Irregular menstruation, unspecified] Onset: 02-13-2024 02-24-2024 Chronic Comment on above: TVUS- possible PCOSt hyroid labs-nlOAR labs- elevated AMHSA-declined at this time Other acquired deformities (3 sources) Scoliosis of thoracic spine; Translations: [Scoliosis, unspecified] Onset: 01-09-2017 03-25-2022 Chronic Other complications of (6 sources) Missed miscarriage; Translations: [Missed ] 05-24-2023 Episodic Comment on above: 13 weeks missed AB, to obtain D&C.desires genetics Other complications of (5 sources) Missed ; Translations: [Missed ] Onset: 11-04-2024 05-24-2023 Episodic Other endocrine disorders (3 sources) Polycystic ovary syndrome; Translations: [Polycystic ovarian syndrome] 2024 Chronic Other endocrine disorders (1 source) Polycystic ovarian syndrome; Translations: [Polycystic ovarian syndrome] Onset: 03-31-2024 Chronic Other nutritional; endocrine; and metabolic disorders (6 sources) Intolerance to lactose; Translations: [Lactose intolerance, unspecified] 04-19-2023 Chronic Other nutritional; endocrine; and metabolic disorders (3 sources) Lactose intolerance, unspecified; 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] 04-25-2023 Chronic Other and delivery including normal (20 sources) Normal ; Translations: [Encounter for supervision of normal first , unspecified trimester] Onset: 08-13-2024 04-19-2023 Episodic Comment on above: , JYOTSNA 11/29/23, H usband Eduard declines genetic & c arrier testing Other screening for suspected conditions (not mental disorders or infectious disease) (14 sources) Patient encounter status; Translations: [Encounter for screening for lipoid disorders] Onset: 10-10-2023 10-10-2023 Episodic Other upper respiratory disease (6 sources) Seasonal allergy; Translations: [Other seasonal allergic rhinitis] 04-19-2023 Chronic Other upper respiratory disease (3 sources) Other seasonal allergic rhinitis; Translations: [Allergic rhinitis, cause unspecified] 04-25-2023 Chronic Residual codes; unclassified (3 sources) H/O: miscarriage; Translations: [Personal history of other complications of , childbirth and the puerperium] 07-27-2024 Episodic Comment on above: plan to consult with RGI on saturday.recommended obtaining APL panel and HSG abstain from a for 2-3 months in order to obtain APL panel first. stated understanding and will obtain in october.is tracking cycles and plans to abstain/condom use during fertile windows. is taking PNVwill continue low inflammatory diet/pcos diet for overall support. Viral infection (1 source) Herpes zoster without complication; Translations: [Zoster without complications] 12-20-2023 Episodic Past or Other Problems Problem Classification Problem Date Documented Date Episodic/Chronic Contraceptive and procreative management (3 sources) Oral contraception status; Translations: [Encounter for surveillance of contraceptive pills] Onset: 07-06-2020 03-25-2022 Episodic Results Test Name Value Interpretation Reference Range Facility Anticardiolipin IgG, IgMon 0 11-03-2024 ANTICARDIO IgG < 9 Normal 0-14 [facility] Comment on above: Result Comment: Nega tive: <15 Indeterminate: 15 - 20 Low-Med Positive: >20 - 80 High Positive: >80 Performed By: #### L 501.9520, L4500.0100, L3100.8410, L3410.1999 ####[facility] [address] [place], [place], [id number] Anticardio.IgM < 9 Normal 0-12 [facility] Comment on above: Result Comment: Nega tive: <13 Indeterminate: 13 - 20 Low-Med Positive: >20 - 80 High Positive: >80 Performed at: - [facility] [id number] Computer Salesperson Retail: Amadou Mckeon MD, Phone: [phone] Performed at: [facility] [id number] Computer Salesperson Retail: Chito Martins PhD, Phone: [phone] Performed By: #### L 501.9520, L4500.0100, L3100.8410, L3410.1999 ####[facility] [address] [place], [place], [id number] Beta-2 Glycoprot IgG, A, 11-03-2024 B2 GLYCO I IGA <9 Normal 0-25 [facility] Comment on above: Result Comment: Resu lt Units: GPI IgA units The reference interval reflects a 3SD or 99th percentile interval, which is thought to represent a potentially clinically significant result in accordance with the International Consensus Statement on the classification criteria for definitive antiphospholipid syndrome (APS). J Thromb Haem 2006;4:295-306. Performed By: #### L 501.9520, L4500.0100, L3100.8410, L3410.1999 ####[facility] [address] [place], [address] B2 GLYCO I IGG <9 Normal 0-20 [facility] Comment on above: Result Comment: Resu lt Units: GPI IgG units The reference interval reflects a 3SD or 99th percentile interval, which is thought to represent a potentially clinically significant result in accordance with the International Consensus Statement on the classification criteria for definitive antiphospholipid syndrome (APS). J Thromb Haem 2006;4:295-306. Performed By: #### L 501.9520, L4500.0100, L3100.8410, L3410.1999 ####[facility] [address] [place], [address] B2 GLYCO I IGM <9 Normal 0-32 [facility] Comment on above: Result Comment: Resu lt Units: GPI IgM units The reference interval reflects a 3SD or 99th percentile interval, which is thought to represent a potentially clinically significant result in accordance with the International Consensus Statement on the classification criteria for definitive antiphospholipid syndrome (APS). J Thromb Haem 2006;4:295-306. Performed By: #### L 501.9520, L4500.0100, L3100.8410, L3410.1999 ####[facility] [address] [place], [address] Lupus Anticoagulant Compon 0 - aPTT Coag (Bld) [Time] 34.5 s Normal 0.0-43.5 [facility] Comment on above: Performed By: #### L 501.9520, L4500.0100, L3100.8410, L3410.1999 ####[facility] [address] [place], [address] DILUTE PT (dPT) 32.9 sec Normal 0.0-47.6 [facility] Comment on above: Performed By: #### L 501.9520, L4500.0100, L3100.8410, L3410.1999 ####[facility] [address] [place], [address] dPT Conf. Ratio 0.98 Ratio Normal 0.00-1.34 [facility] Comment on above: Performed By: #### L 501.9520, L4500.0100, L3100.8410, L3410.1999 ####[facility] [address] [place], [address] DRVVT 32.9 sec Normal 0.0-47.0 [facility] Comment on above: Performed By: #### L 501.9520, L4500.0100, L3100.8410, L3410.1999 ####[facility] [address] [place], [address] Interpretation Comment: Normal . [facility] Comment on above: Result Comment: No l upus anticoagulant was detected. Performed By: #### L 501.9520, L4500.0100, L3100.8410, L3410.1999 ####[facility] [address] [place], [address] THROMBIN TIME 19.1 sec Normal 0.0-23.0 [facility] Comment on above: Performed By: #### L 501.9520, L4500.0100, L3100.8410, L3410.1999 ####[facility] [address] [place], [address] Dilute Toro's viper venom timeOrdered By: Laurel Kimball on 10-30-2024 dRVVT Coag (PPP) [Time] 32.9 s 0.0-47.0 [facility] Serum beta 2 glycoprotein 1 IgA antibody detectionOrdered By: Laurel Kimball on 10-30-2024 Beta 2 glycoprotein 1 IgA Ql (S) <9 0-25 [facility] Comment on above: Result Units: GPI Ig A unitsThe reference interval reflects a 3SD or 99th percentileinterval, which is thought to represent a potentiallyclinically significant result in accordance with theInternational Consensus Statement on the classificationcriteria for definitive antiphospholipid syndrome (APS). JThromb Haem 2006;4:295-306. Serum beta 2 glycoprotein 1 IgG antibody detectionOrdered By: Laurel Kimball on 10-30-2024 Beta 2 glycoprotein 1 IgG Ql (S) <9 0-20 [facility] Comment on above: Result Units: GPI Ig G unitsThe reference interval reflects a 3SD or 99th percentileinterval, which is thought to represent a potentiallyclinically significant result in accordance with theInternational Consensus Statement on the classificationcriteria for definitive antiphospholipid syndrome (APS). JThromb Haem 2006;4:295-306. Serum beta 2 glycoprotein 1 IgM antibody detectionOrdered By: Laurel Kimball on 10-30-2024 Beta 2 glycoprotein 1 IgM Ql (S) <9 0-32 [facility] Comment on above: Result Units: GPI Ig M unitsThe reference interval reflects a 3SD or 99th percentileinterval, which is thought to represent a potentiallyclinically significant result in accordance with theInternational Consensus Statement on the classificationcriteria for definitive antiphospholipid syndrome (APS). JThromb Haem 2006;4:295-306. Serum cardiolipin IgG antibo dy assay by immunoassay (units/volume)Ordered By: Laurel Kimball on 10-30-2024 Cardiolipin IgG IA Qn (S) < 9 GPL U/mL 0-14 [facility] Comment on above: Negative: <15 Indete rminate: 15 - 20 Low-Med Positive: >20 - 80 High Positive: >80 TSH DL <= 0.005 mIU/L QnOrde red By: Laurel Kimball on 10-30-2024 TSH Qn 0.715 uIU/mL 0.300-4.200 [facility] Thrombin timeOrdered By: Arleth Kimball on 10-30-2024 Thrombin time Coag (PPP) [Time] 19.1 sec 0.0-23.0 [facility] Thyroid Stim Hormone (TSH)on 10-30-2024 TSH 0.715 uIU/mL Normal 0.300-4.200 [facility] Comment on above: Performed By: #### L 501.9520, L4500.0100, L3100.8410, L3410.2000 ####[facility] [address] [place], [address] Project Management Intern Office Visit Reporton 08-21-2024 Project Management Intern Office Visit Report [facility] [address], [address] [place] [address] OFFICE VISIT Date of Service: 08/21/24 MR#: [id number] Acct: [id number] Name: SUKI LEE Rep #: [id number] : 2000 Provider: ESPINOZA blanchard Age/Sex: 24/F [place] [facility] [place]: Signed Intake Vital Signs 04/30/24 14:00 08/21/24 08:58 Height 5 ft 3 in 5 ft 3 in Weight: 111 lb 8 oz BMI 19.7 BP 107/70 Intake Visit Reasons: Discuss SAB Rock Crusher Required: No Is patient in pain?: No Allergies No Known Allergies Allergy (Verified 08/21/24 08:56) Medications ???Medication ???Instructions ???Recorded ???Confirmed ???Type multivitamin no.47-iron fum 27 1 cap PO DAILY 04/19/23 08/21/24 H istory mg-folate no.1 1 mg-dha 300 mg capsule (PNV-DHA) pyridoxine (vitamin B6) 50 mg 50 mg PO DAILY 05/24/23 08/21/24 H istory tablet Post menopausal: No Patient : No : No Control [facility]: [facility] History Early stage of Supervision of normal first Surgical History S/P D C (status post dilation and curettage) Family History Grandfather Diabetes Mother Melanoma, Onset Age: 35 Social History adopted: No household members: spouse current occupational status: employed current occupation: [employer] current occupational exposures/hazards: No pets and animals: Yes pets and animals: dog(s) history of recent travel: [place] ([place]) out of state: Yes out of country: No sexually active: Yes Smoking Status: Never smoker alcohol intake: never substance use type: does not use diet: lactose free well-balanced diet: daily or most days caffeine: No eating out: 1-3 times/week during the past year weight has: remained stable what type of physical activity do you participate in: none katerin/confucianist: Congregational seatbelt use: always do you feel safe at home: Yes additional social history: - Eduard- [employer] HPI Discuss SAB Details: SUKI LEE is a 24 year old who presents for follow up miscarriage management. this is her 3rd miscarriage since last year. first was at 13 weeks, second miscarriage at 5 weeks and this is around 4-5 weeks from LMP. hcg was trending to negative. APL blood work has not been obtain since was achieved prior to 3 months. hsg not yet obtained secondary to . she is presenting today to review options and management. since february she has been using dietary and supplements (elio-chiro) measures to control her PCOS which has resulted in under 35 day cycles and more consistent cycles. she has a holistic provider appointment in september and RGI appointment scheduled for saturday. History 2 Elective abortions Hx Para 0 Spontaneous abortions 2 Hx # Term Pregnancies Ectopic pregnancies Hx # Pregnancies Multiple births # of living children 0 Past Pregnancies Del. Date Name GA/Weeks Outcome Route Bth Weight Gen Labor Lgth Anesthesia Del [facility] Provider FOB 05/24/23 13 spontaneous Exam Const General: cooperative Resp Effort Inspection: normal respiratory effort GI Inspection: normal to inspection Other: declined, no longer bleeding. Extrem General: normal to inspection Psych Appearance: grossly normal Other: appropriately tearful Coding Level of Care Code Off vis,est,level 3 Diagnoses History of miscarriage Z87.59 Additional Codes PHQ-9 (36464) Assessment and Plan Assessment and Plan (1) History of miscarriage: Status: Acute Comment: plan to consult with RGI on saturday. recommended obtaining APL panel and HSG abstain from a for 2-3 months in order to obtain APL panel first. stated understanding and will obtain in october. is tracking cycles and plans to abstain/condom use during fertile windows. is taking PNV will continue low inflammatory diet/pcos diet for overall support. 08/21/24 4977 Date Amadeo Taylor CNM Cosigner Signature: Date (if applicable) CC: Normal [facility] HCG ( test) QlOrder ed By: Ana Armstrong on 08-03-2024 Human Chorionic Gonadotropin, Quant 10 mIU/mL High <4 [facility] Comment on above: hCG levels with Gest ational AgeGestational Age hCG mIU/mL (IU/L)0.2 - 1 week 5 - 501-2 weeks 50 - 5002-3 weeks 100 - 73685-8 weeks 500 - 257942-8 weeks 1000 - 960980-8 weeks 24383 - 100,0006-8 weeks 35112 - 200,0002-3 months 67690 - 100,000 Serum human chorionic gonado tropin detection for pregnancyOrdered By: Ana Armstrong on 08-03-2024 HCG ( test) Ql 10 mIU/mL High <4 [facility] Comment on above: hCG levels with Gest ational AgeGestational Age hCG mIU/mL (IU/L)0.2 - 1 week 5 - 501-2 weeks 50 - 5002-3 weeks 100 - 03881-3 weeks 500 - 007538-3 weeks 1000 - 661799-0 weeks 33193 - 100,0006-8 weeks 85286 - 200,0002-3 months 97762 - 100,000 hCG Titer Quant., Serumon HCG QUANT. 10 mIU/mL High 1-3 [facility] Comment on above: Result Comment: hCG levels with Gestational Age Gestational Age hCG mIU/mL (IU/L) 0.2 - 1 week 5 - 50 1-2 weeks 50 - 500 2-3 weeks 100 - 5000 3-4 weeks 500 - 67336 4-5 weeks 1000 - 62880 5-6 weeks 35717 - 100,000 6-8 weeks 21736 - 200,000 2-3 months 01089 - 100,000 Performed By: #### L 700.8000 #### [facility] [place], [address] HCG ( test) QlOrder ed By: Ana Armstrong on 07-31-2024 Human Chorionic Gonadotropin, Quant 40 mIU/mL High <4 [facility] Comment on above: hCG levels with Gest ational AgeGestational Age hCG mIU/mL (IU/L)0.2 - 1 week 5 - 501-2 weeks 50 - 5002-3 weeks 100 - 83064-9 weeks 500 - 989871-5 weeks 1000 - 891091-5 weeks 81711 - 100,0006-8 weeks 69268 - 200,0002-3 months 15560 - 100,000 Serum human chorionic gonado tropin detection for pregnancyOrdered By: Ana Armstrong on 07-31-2024 HCG ( test) Ql 40 mIU/mL High <4 [facility] Comment on above: hCG levels with Gest ational AgeGestational Age hCG mIU/mL (IU/L)0.2 - 1 week 5 - 501-2 weeks 50 - 5002-3 weeks 100 - 44736-6 weeks 500 - 158874-6 weeks 1000 - 117499-7 weeks 76308 - 100,0006-8 weeks 55117 - 200,0002-3 months 94147 - 100,000 hCG Titer Quant., Serumon HCG QUANT. 40 mIU/mL High 1-3 [facility] Comment on above: Result Comment: hCG levels with Gestational Age Gestational Age hCG mIU/mL (IU/L) 0.2 - 1 week 5 - 50 1-2 weeks 50 - 500 2-3 weeks 100 - 5000 3-4 weeks 500 - 27041 4-5 weeks 1000 - 19230 5-6 weeks 31154 - 100,000 6-8 weeks 10887 - 200,000 2-3 months 69117 - 100,000 Performed By: #### L 700.8000 #### [facility] [address] [place], [address] HCG ( test) QlOrder ed By: Laurel Kimball on 07-29-2024 Human Chorionic Gonadotropin, Quant 35 mIU/mL High <4 [facility] Comment on above: hCG levels with Gest ational AgeGestational Age hCG mIU/mL (IU/L)0.2 - 1 week 5 - 501-2 weeks 50 - 5002-3 weeks 100 - 46363-2 weeks 500 - 870433-5 weeks 1000 - 046510-5 weeks 64342 - 100,0006-8 weeks 14717 - 200,0002-3 months 34352 - 100,000 Serum human chorionic gonado tropin detection for pregnancyOrdered By: Laurel Kimball on 07-29-2024 HCG ( test) Ql 35 mIU/mL High <4 [facility] Comment on above: hCG levels with Gest ational AgeGestational Age hCG mIU/mL (IU/L)0.2 - 1 week 5 - 501-2 weeks 50 - 5002-3 weeks 100 - 92597-7 weeks 500 - 091124-2 weeks 1000 - 214500-9 weeks 28835 - 100,0006-8 weeks 69243 - 200,0002-3 months 40307 - 100,000 hCG Titer Quant., Serumon HCG QUANT. 35 mIU/mL High 1-3 [facility] Comment on above: Order Comment: viabi lity Result Comment: hCG levels with Gestational Age Gestational Age hCG mIU/mL (IU/L) 0.2 - 1 week 5 - 50 1-2 weeks 50 - 500 2-3 weeks 100 - 5000 3-4 weeks 500 - 86477 4-5 weeks 1000 - 49203 5-6 weeks 45256 - 100,000 6-8 weeks 39852 - 200,000 2-3 months 45466 - 100,000 Performed By: #### L 700.8000 #### [facility] Laboratory [facility] [place], [address] Project Management Intern Office Visit Reporton 04-30-2024 Project Management Intern Office Visit Report [facility]'s [address], [address] [place] [address] OFFICE VISIT Date of Service: 04/30/24 MR#: [id number] Acct: [id number] Name: SUKI LEE Rep #: [id number] : 2000 Provider: Dr. Laurel Savage DO Age/Sex: 24/F [place] [facility] [place]: Signed Intake Vital Signs 02/24/24 14:29 04/30/24 13:58 04/30/24 14:00 Height 5 ft 3 in 5 ft 3 in 5 ft 3 in Weight: 111 lb 6 oz BMI 19.7 BP 107/71 Intake Visit Reasons: miscarriage follow up Rock Crusher Required: No Is patient in pain?: No Allergies No Known Allergies Allergy (Verified 04/30/24 13:58) Medications ???Medication ???Instructions ???Recorded ???Confirmed ???Type multivitamin no.47-iron fum 27 1 cap PO DAILY 04/19/23 04/30/24 History mg-folate no.1 1 mg-dha 300 mg capsule (PNV-DHA) pyridoxine (vitamin B6) 50 mg 50 mg PO DAILY 05/24/23 04/30/24 History tablet Post menopausal: No Patient : No : [facility] Medical History Early stage of Supervision of normal first Surgical History S/P D C (status post dilation and curettage) Family History Grandfather Diabetes Mother Melanoma, Onset Age: 35 Social History adopted: No household members: spouse current occupational status: employed current occupation: [employer] current occupational exposures/hazards: No pets and animals: Yes pets and animals: dog(s) history of recent travel: [place] ([place]) out of state: Yes out of country: No sexually active: Yes Smoking Status: Never smoker alcohol intake: never substance use type: does not use diet: lactose free well-balanced diet: daily or most days caffeine: No eating out: 1-3 times/week during the past year weight has: remained stable what type of physical activity do you participate in: none katerin/confucianist: Congregational seatbelt use: always do you feel safe at home: Yes additional social history: - Eduard- [employer] HPI miscarriage follow up Details: SUKI LEE is a 24 year old who presents for miscarriage follow up. This time she was about 5 weeks from her missed period, unlike her last miscarriage which was at 13 weeks (last may) She has stopped bleeding and her last quant on 04/15 was at a non- value. She is interested in finding out why she miscarried twice. History 2 Elective abortions Hx Para 0 Spontaneous abortions 2 Hx # Term Pregnancies Ectopic pregnancies Hx # Pregnancies Multiple births # of living children 0 Past Pregnancies Del. Date Name GA/Weeks Outcome Route Bth Weight Infant Gen Labor Lgth Anesthesia Del [facility] Provider FOB 05/24/23 13 spontaneous ROS Const ROS Unobtainable: All systems reviewed are unremarkable except as noted in H Resp Resp: Reports system reviewed and no additional complaints, except as documented; Denies cough GI GI: Reports as per HPI Psych Psych: Reports system reviewed and no additional complaints, except as documented Exam Const General: cooperative, healthy appearing, comfortable and no acute distress Resp Effort Inspection: normal respiratory effort Skin General: no rashes or lesions noted Psych Appearance: grossly normal Speech and Movement: speech and movement normal Coding Level of Care Code Off vis,est,level 3 Diagnoses Missed O02.1 PCOS (polycystic ovarian syndrome) E28.2 Irregular menstrual bleeding N92.6 Assessment and Plan Assessment and Plan (1) Missed : Status: Acute Comment: 13 weeks missed AB, to obtain D C. desires genetics (2) PCOS (polycystic ovarian syndrome): Status: Acute (3) Irregular menstrual bleeding: Status: Acute Comment: TVUS- possible PCOS thyroid labs-nl OAR labs- elevated AMH SA-declined at this time Orders: Orders Beta-2 Glycoprot IgG, A, M Today N96 - Recurrent loss, O02.1 - Missed Lupus Anticoagulant Comp Today N96 - Recurrent loss, O02.1 - Missed Anticardiolipin IgG, IgM Today N96 - Recurrent loss, O02.1 - Missed Thyroid Stim Hormone (TSH) Today O02.1 - Missed Plan plan is to start with APL labs and then HSG after her next period 04/30/24 4280 Date Laurel Briscoe Signature: Date (if applicable) CC: Normal [facility] HCG ( test) QlOrder ed By: Carolynn Ochoa on 04-15-2024 Human Chorionic Gonadotropin, Quant 3 mIU/mL <4 [facility] Comment on above: hCG levels with Gest ational AgeGestational Age hCG mIU/mL (IU/L)0.2 - 1 week 5 - 501-2 weeks 50 - 5002-3 weeks 100 - 98117-3 weeks 500 - 248498-2 weeks 1000 - 205376-9 weeks 50332 - 100,0006-8 weeks 47536 - 200,0002-3 months 01125 - 100,000 hCG Titer Quant., Serumon HCG QUANT. 3 mIU/mL Normal 1-3 [facility] Comment on above: Result Comment: hCG levels with Gestational Age Gestational Age hCG mIU/mL (IU/L) 0.2 - 1 week 5 - 50 1-2 weeks 50 - 500 2-3 weeks 100 - 5000 3-4 weeks 500 - 77368 4-5 weeks 1000 - 08897 5-6 weeks 38227 - 100,000 6-8 weeks 93929 - 200,000 2-3 months 79637 - 100,000 Performed By: #### L 700.8000 ####[facility] [address] [facility]. [place], [place], [address] hCG Titer Quant., Serumon HCG QUANT. 9 mIU/mL High 1-3 [facility] Comment on above: Performed By: #### L 700.8000 #### [facility] Laboratory [address] [facility] [place], [place], [address] PROGESTERONE 4317on 03-04-20 24 PROGESTERONE 9.1 ng/mL Normal . [facility] Comment on above: Order Comment: N [id number] Result Comment: Foll icular phase 0.1 - 0.9 Luteal phase 1.8 - 23.9 Ovulation phase 0.1 - 12.0 First trimester 11.0 - 44.3 Second trimester 25.4 - 83.3 Third trimester 58.7 - 214.0 Postmenopausal 0.0 - 0.1 Performed at: [facility] - [facility] [id number] Computer Salesperson Retail: Chito Martins PhD, Phone: [phone] Performed By: #### L 918.6955 #### [facility] Laboratory [address] [place], [address] Project Management Intern Office Visit Reporton 02-24-2024 Project Management Intern Office Visit Report [facility]'s [address], [address] [place] [address] OFFICE VISIT Date of Service: 02/24/24 MR#: [id number] Acct: [id number] Name: SUKI LEE Rep #: [id number] : 2000 Provider: ESPINOZA Chávez ams Age/Sex: 24/F Location[place] [facility] [place] Status: Signed Intake Vital Signs 01/31/24 14:15 02/24/24 14:25 02/24/24 14:29 Height 5 ft 3 in 5 ft 3 in 5 ft 3 in Weight: 112 lb BMI 19.8 BP 87/54 L Intake Visit Reasons: follow up PCOS confirmation Rock Crusher Required: No Is patient in pain?: No Allergies No Known Allergies Allergy (Verified 02/24/24 14:29) Medications ???Medication ???Instructions ???Recorded ???Confirmed ???Type multivitamin no.47-iron fum 27 1 cap PO DAILY 04/19/23 02/24/24 History mg-folate no.1 1 mg-dha 300 mg capsule (PNV-DHA) pyridoxine (vitamin B6) 50 mg 50 mg PO DAILY 05/24/23 02/24/24 History tablet PFSH Medical History Supervision of normal first Surgical History S/P D C (status post dilation and curettage) Family History Grandfather Diabetes Mother Melanoma, Onset Age: 35 Social History adopted: No household members: spouse current occupational status: employed current occupation: [employer] current occupational exposures/hazards: No pets and animals: Yes pets and animals: dog(s) history of recent travel: [place] ([place]) out of state: Yes out of country: No sexually active: Yes Smoking Status: Never smoker alcohol intake: never substance use type: does not use diet: lactose free well-balanced diet: daily or most days caffeine: No eating out: 1-3 times/week during the past year weight has: remained stable what type of physical activity do you participate in: none katerin/confucianist: Congregational seatbelt use: always do you feel safe at home: Yes additional social history: - Eduard- [employer] HPI follow up PCOS confirmation Details: SUKI LEE is a 24 year old who presents for PCOS/lab/infertility follow up. typical cycles now are 40 day cycles. discussed probable PCOS due to irregular cycles, elevated AMH, and TVUS findings. Female Reproductive History Last Menstrual Period: 02/02/24 Cycle Length: >35 Questions: sexually active: Yes, dyspareunia: No and PCB: No History 1 Elective abortions Hx Para 0 Spontaneous abortions 1 Hx # Term Pregnancies Ectopic pregnancies Hx # Pregnancies Multiple births # of living children 0 Past Pregnancies Del. Date Name GA/Weeks Outcome Route Bth Weight Gen Labor Lgth Anesthesia Del [facility] Provider FOB 05/24/23 13 spontaneous ROS Const Constitutional: Reports system reviewed and no additional complaints, except as documented Cardio Card: Reports system reviewed and no additional complaints, except as documented Resp Resp: Reports system reviewed and no additional complaints, except as documented GI GI: Reports system reviewed and no additional complaints, except as documented : Reports system reviewed and no additional complaints, except as documented; Denies difficulty voiding, dysuria or urinary frequency Skin Skin/Breast: Reports system reviewed and no additional complaints, except as documented Neuro Neuro: Reports system reviewed and no additional complaints, except as documented Psych Psych: Reports system reviewed and no additional complaints, except as documented Exam Const General: cooperative, healthy appearing, comfortable and no acute distress Resp Effort Inspection: normal respiratory effort, able to speak in complete sentences and symmetric chest movement GI Inspection: normal to inspection Palpation: soft Neuro General: patient alert, patient awake and patient oriented x3 Cognition: normal cognition Speech: speech normal Gait: normal gait Psych Appearance: grossly normal and well kempt Mental Status: mental status grossly normal Affect: normal affect Speech and Movement: speech and movement normal Attitude: cooperative Thought Process: normal Thought Content: normal Judgment: judgment good Coding Level of Care Code Off vis,est,level 3 Diagnoses PCOS (polycystic ovarian syndrome) E28.2 Assessment and Plan Assessment and Plan (1) PCOS (polycystic ovarian syndrome): Status: Acute Plan: timed intercourse 33 day progesterone level Elio+D-Chiro vitamin call when cycle start for letrozole-handout given Orders: Orders PROGESTERONE Today E28.2 - Polycystic ovarian syndrome 02/24/24 1508 (more content not included)... Normal [facility] Pelvic w/ Transvaginalon Pelvic w/ Transvaginal [facility] Imaging Services [address] [facility] [address] [place], [place] [address] Pelvic w/ Transvaginal MR#: [id number] Acct: [id number] Name: SUKI LEE JAY Rep #: [id number] : 2000 F 23 From: Christopher Panchal PCP: Dr. Valentin Morrissey MD Status: [facility] Study: Pelvic w/ Transvaginal Date of Exam: 02/07/24 Exam# [id number] Ordering Dr: Ana Armstrong [facility] [id number] EXAM: US PELVIS TRANSABDOMINAL AND TRANSVAGINAL, COMPLETE CLINICAL INDICATION: Infertility/irregular menses TECHNIQUE: Transabdominal and transvaginal pelvic ultrasound was performed with grayscale and color Doppler imaging. Transvaginal imaging was used for better evaluation of the endometrium and adnexa. COMPARISON: No relevant prior studies available. FINDINGS: UTERUS/CERVIX: Retroverted uterus. There is no uterine mass. The uterus measures 6.2 x 4.5 x 3.8 cm. The endometrial stripe measures 0.3 cm in thickness. RIGHT OVARY: Numerous small follicles in the periphery of the right ovary. Blood flow is present in the right ovary. The right ovary measures 3.2 x 1.9 x 1.7 cm. LEFT OVARY: Numerous small follicles in the periphery of the left ovary. Blood flow is present in the left ovary. The left ovary measures 2.8 x 2.3 x 2.1 cm. FREE FLUID: None. BLADDER: Unremarkable as visualized. Wall is normal thickness for degree of distention. US/Pelvic w/ Transvaginal IMPRESSION: 1. Retroverted uterus. 2. Numerous small follicles in the periphery of the ovaries bilaterally may be due to polycystic ovary disease. Electronically Signed: Christopher Maldonado MD at 0:00 EDT , CC: ESPINOZA Armstrong; Dr. Valentin Morrissey MD Eviction Specialist: Signed Normal [facility] L900.0111on 02-04-2024 REPROSOURCE SEE SCANNED REPORT Normal [facility] Comment on above: Performed By: #### L 506.0400, L900.0111, L501.9520 #### [facility] Laboratory [address] [place], [address] T4 Free Directon 02-04-2024 T4 FREE DIRECT 0.81 ng/dL Normal 0.76-1.46 [facility] Comment on above: Performed By: #### L 506.0400, L900.0111, L501.9520 #### [facility] Laboratory [address] [place], [address] Thyroid Stim Hormone (TSH)on 02-04-2024 TSH 0.749 uIU/mL Normal 0.358-3.740 [facility] Comment on above: Performed By: #### L 506.0400, L900.0111, L501.9520 #### [facility] Laboratory [address] [place], [address] Project Management Intern Office Visit Reporton 01-31-2024 Project Management Intern Office Visit Report [facility]'s [address], [address] [place] [address] OFFICE VISIT Date of Service: 01/31/24 MR#: [id number] Acct: [id number] Name: SUKI LEE Rep #: [id number] : 2000 Provider: ESPINOZA Chávez ams Age/Sex: 23/F [place] [facility] [place] Status: Signed Intake Vital Signs 10/04/23 10:31 01/31/24 14:08 01/31/24 14:15 Height 5 ft 3 in 5 ft 3 in 5 ft 3 in Weight: 111 lb 2 oz 111 lb 8 oz BMI 19.6 19.7 BP 111/68 99/61 Intake Visit Reasons: FERTILITY CONSULT/HORMONES Rock Crusher Required: No Is patient in pain?: No Allergies No Known Allergies Allergy (Verified 01/31/24 14:07) Medications ???Medication ???Instructions ???Recorded ???Confirmed ???Type multivitamin no.47-iron fum 27 1 cap PO DAILY 04/19/23 01/31/24 History mg-folate no.1 1 mg-dha 300 mg capsule (PNV-DHA) pyridoxine (vitamin B6) 50 mg 50 mg PO DAILY 05/24/23 01/31/24 History tablet Is last menstrual period known: Yes Last Menstrual Period: 12/21/23 Post menopausal: No Patient : No : No [facility] Medical History Supervision of normal first Surgical History S/P D C (status post dilation and curettage) Family History Grandfather Diabetes Mother Melanoma, Onset Age: 35 Social History adopted: No household members: spouse current occupational status: employed current occupation: [employer] current occupational exposures/hazards: No pets and animals: Yes pets and animals: dog(s) history of recent travel: [place] ([place]) out of state: Yes out of country: No sexually active: Yes Smoking Status: Never smoker alcohol intake: never substance use type: does not use diet: lactose free well-balanced diet: daily or most days caffeine: No eating out: 1-3 times/week during the past year weight has: remained stable what type of physical activity do you participate in: none katerin/confucianist: Congregational seatbelt use: always do you feel safe at home: Yes additional social history: - Eduard- [employer] HPI FERTILITY CONSULT/HORMONES Details: SUKI LEE is a 23 year old who presents for infertility consult. Had SAB in may. had 3 regular cycles prior to conceiving then. Since SAB, cycles have been irregular ranging from 27-42 days. Uses Natural Cycles rubén and ora ring to track cycles. Dysmenorrhea: no Irregular menses: only since SAB/ D C Menopausal symptoms: no Persistent GOLDMAN or visual changes: no Hirsutism: no Previous contraception used: high school-Acne December 2019-Jun 2022 Duration of regular unprotected intercourse: 7 months-since SAB history of pelvic infections in patient or partner: no family history of endometriosis: no tobacco use for patient or her partner: no partner fathered any pregnancies: yes- one SAB partner history of testicular issues, ejaculatory dysfunction, or history of Mumps: No Partner medications/vitamins/sup plements: multiple supplements 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 Date Name GA/Weeks Outcome Route Bth Weight Infant Gen Labor Lgth Anesthesia Del [facility] Provider FOB 05/24/23 13 spontaneous ROS Const Constitutional: Reports system reviewed and no additional complaints, except as documented Cardio Card: Reports system reviewed and no additional complaints, except as documented Resp Resp: Reports system reviewed and no additional complaints, except as documented GI GI: Reports system reviewed and no additional complaints, except as documented : Reports system reviewed and no additional complaints, except as documented; Denies difficulty voiding, dysuria or urinary frequency Skin Skin/Breast: Reports system reviewed and no additional complaints, except as documented Neuro Neuro: Reports system reviewed and no additional complaints, except as documented Psych Psych: Reports system reviewed and no additional complaints, except as documented Exam Const General: cooperative, healthy appearing, comfortable and no acute distress Neck Neck: normal visual inspection and full ROM Neck mass: No Thyroid: thyroid normal Resp Effort Inspec (more content not included)... Normal [facility] CNOVon 12-20-2023 CNOV Office Visit (UCWSTR ) -------- SUKI LEE ([id number]) 2000 F Date Time Provider Department 12/20/23 7:30 PM RUDDY PERAZA [facility] During your visit today, we recorded the following information about you: Temperature Pulse Respiration Blood pressure 99.4 degrees 75/minute 21/minute 100/58 Weight 50.2 kg Ruddy Peraza APRN.PASTRY COOK HELPER 12/20/2023 8:00 PM Signed Subjective HPI HPI Suki Lee is a 23 year old female who presents today for CC of painful rash and tingling/numbness. This started 2 days ago/worsening. Has tried nothing for relief. Symptoms are worsened by nothing. Risk factors had chicken pox as child. Denies possibility of being . Patient not known to f, denies renal/hepatic disease, denies chronic disease. .Patient presents with: Rash: Rash on numbness in right leg x 2 days No past medical history on file. No past surgical history on file. ALLERGIES Patient has no known allergies. MEDICATIONS valACYclovir (VALTREX) 1 gram tablet Take 1 tablet by mouth three times a day for 7 days. No family history on file. Social History Tobacco Use Smoking status: Never Smokeless tobacco: Never ROS Objective Blood pressure 100/58, pulse 75, temperature 37.4 ?C (99.4 ?F), resp. rate 21, weight 50.2 kg (110 lb 10.7 oz), last menstrual period 07/24/2017, SpO2 99%. Physical Exam Constitutional: General: She is not in acute distress. Appearance: She is not toxic-appearing or diaphoretic. HENT: Head: Normocephalic and atraumatic. Pulmonary: Effort: Pulmonary effort is normal. No accessory muscle usage or respiratory distress. Skin: Neurological: Mental Status: She is alert and oriented to person, place, and time. ASSESSMENT/PLAN: 1. Herpes zoster without complication - ICD9: 053.9, ICD10: B02.9 Course and contagiousness discussed. -use medication as prescribed -follow up if symptoms persist, worsen, change - VALACYCLOVIR 1 GRAM TABLET Ruddy Peraza APRN.PASTRY COOK HELPER Allergies As of Date: 12/20/2023 (No Known Allergies) Date Reviewed: 12/20/2023 Reviewed by: Windy Milligan MA - Fully Assessed Reason for Visit: Rash [1087] Cmt: Rash on numbness in right leg x 2 days Primary Visit Diagnosis:Herpes zoster without complication [B02.9] Order(s):valACYclovir (VALTREX) 1 gram tabletTake 1 tablet by mouth three times a day for 7 days.Disp: 21 tabletRfl: 0 Prescriptions as of 12/20/2023 - valACYclovir (VALTREX) 1 gram tablet Take 1 tablet by mouth three times a day for 7 days. Problem List As Of Date: 12/20/2023 (None) Prescriptions ordered this encounter Disp Refills Start End VALACYCLOVIR 1 GRAM TABLET 21 t* 0 12/20/2023 12/27/2023 Route: ORAL Sig: Take 1 tablet by mouth three times a day for 7 days. Encounter Status:Closed by RUDDY PERAZA on 12/20/23 [facility] Progress Noteon 10-25-2023 Progress Note Venipuncture complet ed by [facility]. [facility] Office Visiton 10-10-2023 Follow-up visit [id number] Calin Lee 2000 F Date Provider Department Center 10/10/2023 [id number]ENTIN [facility] Family History Problem Relation Age of Onset No Known Problems Father No Known Problems Sister No Known Problems Maternal Grandmother No Known Problems Maternal Grandfather No Known Problems Paternal Grandfather No Known Problems Paternal Grandmother Cancer Mother Comments: Melanoma No Known Problems Brother Family Status - Relation Status Age at Father Alive Sister Maternal Grandmother Maternal Grandfather Paternal Grandfather Paternal Grandmother Mother Alive Brother Level of Service:24728 RI PERIODIC PREVENTIVE MED EST PATIENT 18-39 YRS Reason for Visit and Comments: Annual Exam [83] Blood Work [237656] Health Maintenance [872] - Hiv screening- refuse Varicella vaccine- had chicken pox Covid vaccine- not done Pap- done last week at [facility] will send for record Normal [facility] Progress Noteon 10-10-2023 Progress Note Patient verified by last name and date of . Normal [facility] Progress Note 10/10/2023 Suki Lee (: 2000) is a 23 y.o. female , Established patient, here for evaluation of the following chief complaint(s): Annual Exam, Blood Work, and Health Maintenance (Hiv screening- refuse/Varicella vaccine- had chicken pox/Covid vaccine- not done /Pap- done last week at [facility] will send for record ) ASSESSMENT/PLAN: 1. Annual physical exam Comments: Healthy female, counseled her on being healthy for conception with vitamins and folic acid 2. Screening for lipid disorders - Lipid panel 3. Immunization due - Tdap vaccine greater than or equal to 7 years old IM 4. Screening for diabetes mellitus - Comprehensive metabolic panel Follow up in about 1 year (around 10/09/2024). SUBJECTIVE/OBJECTIVE: HPI Coco comes in today for an annual checkup, she needs fasting lab work and she also would like to have a Tdap because her are trying to conceive and she would like to have the in place before she gets . She denies any complaints at this time, see ROS. Review of Systems Constitutional: Negative for chills and fever. Respiratory: Negative for shortness of breath. Cardiovascular: Negative for chest pain and palpitations. Gastrointestinal: Negative for abdominal pain, blood in stool, constipation and diarrhea. Genitourinary: Negative for dyspareunia, dysuria, frequency, hematuria and urgency. Neurological: Negative for weakness and numbness. Psychiatric/Behavioral: Negative for dysphoric mood. The patient is not nervous/anxious. Vitals: 10/10/23 1359 BP: 99/61 Pulse: 69 SpO2: 97% Weight: 110 lb 3.2 oz (50 kg) Height: 5' 3 (1.6 m) Physical Exam Vitals and nursing note reviewed. Constitutional: General: She is not in acute distress. Appearance: Normal appearance. HENT: Head: Normocephalic. Right Ear: Tympanic membrane, ear canal and external ear normal. Left Ear: Tympanic membrane, ear canal and external ear normal. Mouth/Throat: Mouth: Mucous membranes are moist. Pharynx: Oropharynx is clear. Eyes: Extraocular Movements: Extraocular movements intact. Pupils: Pupils are equal, round, and reactive to light. Neck: Thyroid: No thyromegaly. Cardiovascular: Rate and Rhythm: Normal rate and regular rhythm. Heart sounds: Normal heart sounds. No murmur heard. Pulmonary: Effort: Pulmonary effort is normal. Breath sounds: Normal breath sounds. Abdominal: General: Bowel sounds are normal. Palpations: Abdomen is soft. Musculoskeletal: General: Normal range of motion. Cervical back: Normal range of motion. Lymphadenopathy: Cervical: No cervical adenopathy. Skin: General: Skin is warm and dry. Neurological: General: No focal deficit present. Mental Status: She is alert and oriented to person, place, and time. Deep Tendon Reflexes: Reflexes normal. Psychiatric: Mood and Affect: Mood normal. Behavior: Behavior normal. Thought Content: Thought content normal. Judgment: Judgment normal. An electronic signature was used to authenticate this note. Valentin Morrissey MD 10/10/2023 2:30 PM [facility] 36on 10-09-2023 36 Message released to patient as written. Patient's further questions if applicable: Were all questions from office addressed or relayed to the patient from encounter: Patient called back to confirm she got the message about fasting. We also update her insurance. Please advise [facility] 36 lm to pre-visit plan for appointment with Dr Morrissey on 10/10/23 2pm. Please ask patient to arrive 15 minutes early with Photo ID, insurance card Fasting: yes [facility] Cervical or vagninal specime n microscopic examination by cytology stain (reported asOrdered By: Laurel Kimball on 10-04-2023 Cytology report Cyto stain Doc (Cvx/Vag) Comment . [facility] Comment on above: The Pap smear is a s creening test designed to aid in thedetection of premalignant and malignant conditions of theuterine cervix. It is not a diagnostic procedure andshould not be used as the sole means of detecting cervicalcancer. Both false-positive and false-negative reports dooccur. Detection in cervical specim en of any of human papilloma virus (HPV) 16, 18, 31, 33,Ordered By: Laurel Kimball on 10-04-2023 HPV 16+18+31+33+35+39+45+51 +52+56+58+59+66+68 DNA Probe+sig amp Ql (Cvx) Negative Negative [facility] Comment on above: This nucleic acid am plification test detects fourteen high-risk HPV types (16,18,31,33,35,39,45,51,52,56,58,59,66,68)without differentiation.Performed at: - [facility] [id number] Director: Anali Stevenson MD, Phone: [phone] at: =[facility] [id number] Director: Anali Stevenson MD, Phone: [phone] Laboratory - CytologyOrdered By: Laurel Kimball on 10-04-2023 Manager Benefit Cyto stain Nom (Cvx/Vag) [ID] Comment . [facility] Comment on above: Jessica Huerta, Cyto technologist (ASCP) Laboratory - Miscellaneous t estsOrdered By: Laurel Kimball on 10-04-2023 Service comment (Unsp spec) [Interp] . . [facility] No Panel InformationOrdered By: Laurel Kimball on 10-04-2023 Vitamin D 25-Hydroxy 95.3 ng/mL [facility] Comment on above: Vitamin D 25(OH) Sta tus Range Deficiency <20 ng/mL (50nmol/L) Insufficiency 20 - 30 ng/mL (50 - 75 nmol/L) Sufficiency 30 - 100 ng/mL (75 - 250 nmol/L) Toxicity >100 ng/mL (>250 nmol/L) Serum or plasma thyroid stim ulating hormone (TSH) measurement (units/volume)Ordered By: Laurel Kimball on 10-04-2023 TSH Qn 0.58 uIU/mL 0.358-3.74 [facility] Thin prep Papanicolaou smear with manual screeningOrdered By: Laurel Kimball on 10-04-2023 Thin prep Papanicolaou smear with manual screening Comment . [facility] Comment on above: NEGATIVE FOR INTRAEP ITHELIAL LESION OR MALIGNANCY. This liquid based Th inPrep(R) pap test was screened withthe use of an image guided system. 36on 09-24-2023 36 Scheduled. [facility] 36 We have not seen the patient in about 2 years. Recommend that she be scheduled for annual physical and she can get her tetanus booster at that time. With chart review it looks like her last Tdap was in 2011. [facility] 36 Name of caller: Jose smart Contact phone number: [phone] Relationship to Patient: patient Provider: Dr Morrissey Practice: [facility] Chief Complaint/Reason for Call: Suki called in and would like to schedule a tetanus shot. Can a member of the staff please contact patient to confirm if she can get tetanus shot and when? Thanks Best time of day caller can be reached: any Patient advised that office/PCP has 24-48 business hours to return their call: Yes [facility] 36on 09-23-2023 36 Notified her the las t date we have on file was 02/19/12. [facility] 36 Name of caller: Jose smart Contact phone number: [phone] Relationship to Patient: patient Provider: Dr. Morrissey Practice: [facility] Chief Complaint/Reason for Call: Pt is requesting call back to advise if she has had a tetanus shot. Pt advised she needs this information for an upcoming trip. Please advise Best time of day caller can be reached: Any AM Patient advised that office/PCP has 24-48 business hours to return their call: Yes [facility] Basophil percentageOrdered B y: Carolynn Ochoa on 05-24-2023 WBC (Bld) [#/Vol] 8.5 10*3/uL 4.4-11.0 [facility] Blood erythrocytes count (nu mber/volume)Ordered By: Carolynn Ochoa on 05-24-2023 RBC (Bld) [#/Vol] 4.05 10*6/uL 4.2-5.4 [facility] Blood hemoglobin measurement (mass/volume)Ordered By: Carolynn Ochoa on 05-24-2023 Hemoglobin (Bld) [Mass/Vol] 11.8 g/dL 12.0-15.0 [facility] Blood platelet mean volumeOr dered By: Carolynn Ochoa on 05-24-2023 Platelet mean volume (Bld) [Entitic vol] 8.8 fL 6.2-12.0 [facility] Determination of erythrocyte mean corpuscular volume (MCV)Ordered By: Carolynn Ochoa on 05-24-2023 MCV (RBC) [Entitic vol] 87.4 fL 81-99 [facility] Hematocrit Auto (Bld) [Volum e fraction]Ordered By: Carolynn Ochoa on 05-24-2023 Hematocrit (Bld) [Volume fraction] 35.4 % 37-47 [facility] Laboratory - Chemistry and C hemistry - challengeon 05-24-2023 Glucose Ql (U) Negative [facility] Laboratory - Hematology and Cell countsOrdered By: Carolynn Ochoa on 05-24-2023 Erythrocyte distribution width (RBC) [Entitic vol] 37.9 fL 35.1-43.9 [facility] Erythrocyte distribution width (RBC) [Ratio] 11.9 % 11.6-14.6 [facility] MCH (RBC) [Entitic mass] 29.1 pg 27.0-32.0 [facility] Laboratory - Urinalysison Protein Ql (U) Negative [facility] MCHC Auto (RBC) [Mass/Vol]Or dered By: Carolynn Ochoa on 05-24-2023 MCHC (RBC) [Mass/Vol] 33.3 g/dL 32-36 [facility] Platelets bldOrdered By: Calin Ochoa on 05-24-2023 Platelets (Bld) [#/Vol] 321 10*3/uL 150-450 [facility] Absolute lymphocyte countOrd ered By: Ana Armstrong on 04-25-2023 Lymphocytes Auto (Unsp spec) [#/Vol] 2.02 10*3/uL 0.83-4.51 [facility] Basophil percentageOrdered B y: Ana Armstrong on 04-25-2023 Basophils/100 WBC (Bld) 1.0 % 0-1 [facility] Eosinophils/100 WBC (Bld) 1.5 % 0-5 [facility] Neutrophils (Bld) [#/Vol] 3.7 10*3/uL 2.0-7.7 [facility] Neutrophils/100 WBC (Bld) 55.2 % 47-70 [facility] WBC (Bld) [#/Vol] 6.7 10*3/uL 4.4-11.0 [facility] Blood erythrocytes count (nu mber/volume)Ordered By: Ana Armstrong on 04-25-2023 RBC (Bld) [#/Vol] 4.44 10*6/uL 4.2-5.4 [facility] Blood hemoglobin measurement (mass/volume)Ordered By: Aan Armstrong on 04-25-2023 Hemoglobin (Bld) [Mass/Vol] 12.7 g/dL 12.0-15.0 [facility] Blood lymphocytes/100 leukoc ytesOrdered By: Ana Armstrong on 04-25-2023 Lymphocytes/100 WBC (Bld) 30.1 % 19-41 [facility] Blood monocytes/100 leukocyt esOrdered By: Ana Armstrong on 04-25-2023 Monocytes/100 WBC (Bld) 12.1 % 0-10 [facility] Blood platelet mean volumeOr dered By: Ana Armstrong on 04-25-2023 Platelet mean volume (Bld) [Entitic vol] 8.9 fL 6.2-12.0 [facility] Chlamydia trachomatis rRNA d etection by probe and target amplification methodOrdered By: Ana Armstrong on 04-25-2023 C. trachomatis rRNA APOLINAR+probe Ql (Unsp spec) Negative Negative [facility] Culture, urineOrdered By: Anurag Armtsrong on 04-25-2023 Bacteria identified Cx Nom (U) Culture exhibits no growth. [facility] Determination of erythrocyte mean corpuscular volume (MCV)Ordered By: Ana Armstrong on 04-25-2023 MCV (RBC) [Entitic vol] 87.2 fL 81-99 [facility] HIV 1 and HIV-2 antibody ass ay with HIV-1 p24 antigen detectionOrdered By: Ana Armstrong on 04-25-2023 HIV 1+2 Ab+HIV1 p24 Ag IA Ql Non-Reactive Nonreactive [facility] Hematocrit Auto (Bld) [Volum e fraction]Ordered By: Ana Armstrong on 04-25-2023 Hematocrit (Bld) [Volume fraction] 38.7 % 37-47 [facility] Laboratory - Hematology and Cell countsOrdered By: Ana Armstrong on 04-25-2023 Erythrocyte distribution width (RBC) [Entitic vol] 36.5 fL 35.1-43.9 [facility] Erythrocyte distribution width (RBC) [Ratio] 11.5 % 11.6-14.6 [facility] Immature granulocytes/100 WBC (Bld) 0.100 % 0.0-0.9 [facility] Comment on above: IG% - Immature Granu locytes (promyelocytes, myelocytes and metamyelocytes) > 1% indicates that a LEFT SHIFT is Present. MCH (RBC) [Entitic mass] 28.6 pg 27.0-32.0 [facility] Nucleated RBC/100 WBC (Bld) [Ratio] 0 % 0-5 [facility] Laboratory - Microbiology an d Antimicrobial susceptibilityOrdered By: Ana Armstrong on 04-25-2023 N. gonorrhoeae DNA APOLINAR+probe Ql (Unsp spec) Negative Negative [facility] Comment on above: Performed at: =[address] [id number] Director: Anali Stevenson MD, Phone: [phone] MCHC Auto (RBC) [Mass/Vol]Or dered By: Ana Armstrong on 04-25-2023 MCHC (RBC) [Mass/Vol] 32.8 g/dL 32-36 [facility] No Panel InformationOrdered By: Ana Armstrong on 04-25-2023 Hepatitis B Surface Antigen Non-Reactive Nonreactive [facility] Hepatitis C Antibody Non-Reactive Nonreactive [facility] Comment on above: Non Reactive: < 0.8 Equivocal: >/= 0.8 to < 1.0 Reactive: >/= 1.0The CDC recommends that a reactive/equivocal HCV antibody result be followed up by the HCV Nucleic Acid Amplificationtest (814020) Rubella IgG Antibody Reactive Nonreactive [facility] Comment on above: Antibody Results Int erpretation of Immune Status Non Reactive Presumed Non-Immune Equivocal Equivocal Reactive Presumed Immune Platelets bldOrdered By: Varinder Armstrong on 04-25-2023 Platelets (Bld) [#/Vol] 400 10*3/uL 150-450 [facility] Serum Treponema species anti body detectionOrdered By: Ana Armstrong on 04-25-2023 Treponema sp Ab Ql (S) Non-Reactive [facility] Vital Signs Date Time Vital Sign Value Performing Clinician Facility 08-21-2024 08:58-0400 Body height 160.[address] Valentin Morrissey MD Work Phone: 8(647)[phone] [place] [address] 08-21-2024 08:58-0400 Body mass index (BMI) [Ratio] 19.7 kg/m2 Dr. Valentin Morrissey MD Work Phone: 4(546)352-278122 [place] [address] 08-21-2024 08:58-0400 Body weight 50.[address] Valentin Morrissey MD Work Phone: 9(665)221-783646 [address] 08-21-2024 08:58-0400 Diastolic blood pressure 70 mm[Hg] Dr. Valentin Morrissey MD Work Phone: [facility] 08-21-2024 08:58-0400 Systolic blood pressure 107 mm[Hg] Dr. Valentin Morrissey MD Work Phone: [facility] 04-30-2024 14:00-0500 Body height 160.[address] Valentni Morrissey MD Work Phone: [facility] 04-30-2024 13:58-0500 Body mass index (BMI) [Ratio] 19.7 kg/m2 Dr. Valentin Morrissey MD Work Phone: [facility] 04-30-2024 13:58-0500 Body weight 50.[address] Valentin Morrissey MD Work Phone: [facility] 04-30-2024 13:58-0500 Diastolic blood pressure 71 mm[Hg] Dr. Valentin Morrissey MD Work Phone: [facility] 04-30-2024 13:58-0500 Systolic blood pressure 107 mm[Hg] Dr. Valentin Morrissey MD Work Phone: [facility] 12-20-2023 19:46-0400 Body temperature 99.39 [degF] Ruddy Peraza INDEPENDENT CONTRACTOR.PASTRY COOK HELPER Work Phone: [facility] 12-20-2023 19:46-0400 Body weight 50.2 kg Ruddy Peraza INDEPENDENT CONTRACTOR.PASTRY COOK HELPER Work Phone: [facility] 12-20-2023 19:46-0400 Diastolic blood pressure 58 mm[Hg] Ruddy Peraza INDEPENDENT CONTRACTOR.PASTRY COOK HELPER Work Phone: [facility] 12-20-2023 19:46-0400 Heart rate 75 /min Ruddy Peraza INDEPENDENT CONTRACTOR.PASTRY COOK HELPER Work Phone: [facility] 12-20-2023 19:46-0400 Respiratory rate 21 /min Ruddy Peraza INDEPENDENT CONTRACTOR.PASTRY COOK HELPER Work Phone: [facility] 12-20-2023 19:46-0400 SaO2% (BldA) [Mass fraction] 99 % Ruddy Peraza INDEPENDENT CONTRACTOR.PASTRY COOK HELPER Work Phone: [facility] 12-20-2023 19:46-0400 Systolic blood pressure 100 mm[Hg] Ruddy Peraza INDEPENDENT CONTRACTOR.PASTRY COOK HELPER Work Phone: [facility] 10-10-2023 13:59-0400 Body height 160 cm Valentin Morrissey MD Work Phone: [facility] 10-10-2023 13:59-0400 Body mass index (BMI) [Ratio] 19.52 kg/m2 Valentin Morrissey MD Work Phone: [facility] 10-10-2023 13:59-0400 Body weight 49.99 kg Valentin Morrissey MD Work Phone: [facility] 10-10-2023 13:59-0400 Diastolic blood pressure 61 mm[Hg] Valentin Morrissey MD Work Phone: [facility] 10-10-2023 13:59-0400 Heart rate 69 /min Valentin Morrissey MD Work Phone: [facility] 10-10-2023 13:59-0400 SaO2% (BldA) [Mass fraction] 97 % Valentin Morrissey MD Work Phone: [facility] 10-10-2023 13:59-0400 Systolic blood pressure 99 mm[Hg] Valentin Morrissey MD Work Phone: [facility] 10-04-2023 10:31-0400 Body height 160.[address] Valentin Morrissey Work Phone: [facility] 10-04-2023 10:31-0400 Body mass index (BMI) [Ratio] 19.6 kg/m2 Dr. Valentin Morrissey Work Phone: [facility] 10-04-2023 10:31-0400 Body weight 50.[address] Valentin Morrissey Work Phone: [facility] 10-04-2023 10:31-0400 Diastolic blood pressure 68 mm[Hg] Dr. Valentin Morrissey Work Phone: [facility] 10-04-2023 10:31-0400 Systolic blood pressure 111 mm[Hg] Dr. Valentin Morrissey Work Phone: [facility] 05-24-2023 20:26-0500 Diastolic blood pressure 63 mm[Hg] Dr. Valentin Morrissey Work Phone: [facility] 05-24-2023 20:26-0500 Heart rate 72 /min Dr. Valentin Morrissey Work Phone: [facility] 05-24-2023 20:26-0500 Respiratory rate 18 /min Dr. Valentin Morrissey Work Phone: [facility] 05-24-2023 20:26-0500 SaO2% (BldA) [Mass fraction] 99 % Dr. Valentin Morrissey Work Phone: [facility] 05-24-2023 20:26-0500 Systolic blood pressure 92 mm[Hg] Dr. Valentin Morrissey Work Phone: [facility] 05-24-2023 20:06-0500 Body temperature 98.6 [degF] Dr. Valentin Morrissey Work Phone: 5(112)830-152722 [place] [address] 05-24-2023 15:49-0500 Body height 160.[address] Valentin Morrissey Work Phone: 4(436)465-458822 [place] [address] 05-24-2023 15:49-0500 Body mass index (BMI) [Ratio] 18.7 kg/m2 Dr. Valentin Morrissey Work Phone: 8(068)287-045722 [place] [address] 05-24-2023 15:49-0500 Body weight [address] Valentin Morrissey Work Phone: 2(284)079-963922 [place] [address] 05-24-2023 08:41-0500 Body mass index (BMI) [Ratio] 19.5 kg/m2 Dr. Valentin Morrissey Work Phone: 7(850)218-336122 [place] [address] 05-24-2023 08:41-0500 Body weight 49.[address] Valentin Morrissey Work Phone: 6(355)280-780222 [place] [address] 05-24-2023 08:41-0500 Diastolic blood pressure 73 mm[Hg] Dr. Valentin Morrissey Work Phone: 1(469)368-588102 [place] [address] 05-24-2023 08:41-0500 Systolic blood pressure 110 mm[Hg] Dr. Valentin Morrissey Work Phone: 7(333)419-316922 [place] [address] 04-25-2023 08:59-0500 Body height 160.[address] Valentin Morrissey Work Phone: 3(025)699-653022 [place] [address] 04-25-2023 08:58-0500 Body mass index (BMI) [Ratio] 19.2 kg/m2 Dr. Valentin Morrissey Work Phone: 2(527)556-982822 [place] [address] 04-25-2023 08:58-0500 Body weight 49.[address] Valentin Morrissey Work Phone: 7(235)030-458522 [place] [address] 04-25-2023 08:58-0500 Diastolic blood pressure 65 mm[Hg] Dr. Valentin Morrissey Work Phone: [facility] 04-25-2023 08:58-0500 Systolic blood pressure 98 mm[Hg] Dr. Valentin Morrissey Work Phone: [facility] Encounters Encounter Date Encounter Type Care Provider Facility Start: 10-30-2024 End: 10-30-[address] Valentin Morrissey MD Work Phone: [facility] Work Phone: Start: 10-30-2024 End: 10-30-[address] Carolynn Ochoa MD -Lab [facility] Start: 10-30-2024 End: 10-30-2024 ambulatory Carolynn Ochoa Facility:[facility] Start: 08-21-2024 End: 08-21-2024 Patient encounter procedure Amadeo Taylor CN -[facility] Work Phone: Start: 08-21-2024 End: 08-21-2024 ambulatory Amadeo Taylor Facility:[facility] Start: 08-03-2024 End: 08-03-[address] Valentin Morrissey MD Work Phone: [facility] Work Phone: Start: 08-03-2024 End: 08-03-2024 Patient encounter procedure Ana Armstrong CNM -Laboratory Work Phone: Start: 08-03-2024 End: 08-03-2024 ambulatory Ana Armstrong Facility:[facility] Start: 07-31-2024 End: 07-31-2024 Patient encounter procedure Ana Armstrong CNM -Laboratory Work Phone: Start: 07-31-2024 End: 07-31-2024 ambulatory Ana Armstrong Facility:[facility] Start: 07-29-2024 End: 07-29-[address] Laurel Gill DO -Laboratory Work Phone: Start: 07-29-2024 End: 07-29-2024 ambulatory Laurel Gill Facility:[facility] Start: 04-30-2024 End: 04-30-[address] Laurel Gill DO [place] [place] Work Phone: Start: 04-30-2024 End: 04-30-2024 ambulatory Laurel Gill Facility:[facility] Start: 04-17-2024 End: 04-22-2024 Regis Baird MD Work Phone: Dermatology Start: 04-15-2024 End: 04-15-[address] Carolynn Ochoa MD -Laboratory Work Phone: Start: 04-15-2024 End: 04-15-2024 ambulatory [facility] Facility:[facility] Start: 04-13-2024 End: 04-13-2024 ambulatory [facility] Facility:[facility] Start: 03-02-2024 End: 03-02-2024 ambulatory [facility] Facility:[facility] Start: 02-24-2024 End: 02-24-2024 ambulatory [facility] Facility:[facility] Start: 02-07-2024 End: 02-07-2024 ambulatory Ana Hollister Facility:[facility] Start: 02-04-2024 End: 02-04-2024 ambulatory Ana Nathaniel Facility:[facility] Start: 01-31-2024 End: 01-31-2024 ambulatory Ana Nathaniel Facility:[facility] Start: 12-20-2023 End: 12-20-2023 ambulatory [facility] Facility:[facility] Start: 12-20-2023 End: 12-20-2023 Patient encounter procedure Ruddy Peraza APRN.CNP Work Phone: [facility] Comment on above: Herpes zoster withou t complication (Primary Dx) Start: 10-25-2023 End: 10-25-[address] [facility] Start: 10-10-2023 End: 10-10-[address] [facility] Start: 10-10-2023 End: 10-10-2023 Encounter for general adult medical examination without abnormal findings [facility] Start: 10-10-2023 End: 10-10-2023 Patient encounter procedure Valentin Morrissey MD Work Phone: [facility] Work Phone: Start: 10-10-2023 End: 10-10-2023 Periodic preventive med est patient 18-39 yrs Valentin Morrissey MD Work Phone: [facility] Comment on above: Annual physical exam (Primary Dx); Screening for lipid disorders; Immunization due; Screening for diabetes mellitus Start: 10-04-2023 End: 10-04-[address] Valentin Morrissey Work Phone: [facility] Work Phone: Start: 10-04-2023 End: 10-04-[address] Valentin Morrissey Work Phone: [facility] Work Phone: Start: 05-27-2023 End: 05-27-[address] Valentin Morrissey Work Phone: [facility] Work Phone: Start: 05-27-2023 End: 05-27-[address] Valentin Morrissey Work Phone: [facility]atory, [facility] Start: 05-24-2023 Non-patient / Non-visit Dr. Coleman Work Phone: [facility] Start: 05-24-2023 End: 05-24-2023 Admission to same day surgery center Dr. Valentin Morrissey Work Phone: [facility] Start: 05-24-2023 End: 05-24-[address] Valentin Morrissey Work Phone: [facility] Work Phone: Start: 05-24-2023 End: 05-24-[address] Valentin Morrissey Work Phone: [facility] Work Phone: Start: 04-25-2023 End: 04-25-[address] Valentin Morrissey Work Phone: [facility] Work Phone: Start: 04-25-2023 End: 04-25-[address] Valentin Morrissey Work Phone: [facility] Work Phone: Procedures Date Procedure Procedure Detail Performing Clinician Start: 10-30-[address] Valentin Morrissey MD Work Phone: Comment on above: No lupus anticoagula nt was detected. Start: 10-30-2024 Lupus anticoagulant assay, platelet neutralization method Dr. Valentin Morrissey MD Work Phone: Start: 10-30-2024 Lupus antico[address] screening test Dr. Valentin Morrissey MD Work Phone: Start: 10-30-[address] Virginia ESTRADA Work Phone: Start: 10-30-2024 Serum IgM anticardio lipin measurement Dr. Valentin Morrissey MD Work Phone: Comment on above: Negative: <13 Indete rminate: 13 - 20 Low-Med Positive: >20 - 80 High Positive: >80Performed at: - [facility] [id number] Director: Amadou Mckeon MD, Phone: [phone] at: [facility] [address] [id number] Director: Chito Martins PhD, Phone: [phone] Start: 10-10-2023 Adult depression scr eening assessment Valentin Morrissey MD Work Phone: Start: 05-24-2023 Dilation and curetta ge of uterus Dr. Valentin Morrissey Work Phone: Start: 04-25-[address] Magen Morrissey Work Phone: Start: 07-06-2020 Microscopic observat ion [Identifier] in Cervix by Cyto stain Vaelntin Morrissey MD Work Phone: Plan of Treatment Date Care Activity Detail Author Start: 2058 RSV Immunization age d 60 or older (1 - 1-dose 60+ series) RSV Immunization aged 60 or older (1 - 1-dose 60+ series) [facility] Start: 02-12-2048 Zoster Vaccines (1 of 2) Zoster Vacc osvaldo (1 of 2) [facility] Start: 10-09-2033 DTaP/Tdap/Td Vaccine s (8 - Td or Tdap) DTaP/Tdap/Td Vaccines (8 - Td or Tdap) [facility] Start: 10-09-2033 Urine microalbumin profile DTaP,Tdap,Td Vaccine (8 - Td or Tdap) [facility] Start: 10-09-2024 Depression Screening Depression Scre ening [facility] Start: 02-09-2024 Covid-19 Vaccine ( season) Covid-19 Vaccine ( season) [facility] Start: 02-09-2024 Influenza vaccination [facility] Start: 10-25-2023 End: 10-25-2023 Clinical Support 10/25/2023 7:00 AM EDT Clinical Support [facility] [address] [place] [address] [facility] Start: 10-10-2023 End: 10-09-2024 Comprehensive metabolic 1998 panel - Serum or Plasma Comprehensive metabolic panel Lab Routine Screening for diabetes mellitus Expected: 10/10/2023 (Approximate), Expires: 10/09/2024 [facility] Comment on above: Expected: 10/10/2023 (Approximate), Expires: 10/09/2024 Start: 10-10-2023 End: 10-09-2024 Lipid 1996 panel - Serum or Plasma Lipid panel Lab Routine Screening for lipid disorders Expected: 10/10/2023 (Approximate), Expires: 10/09/2024 [facility] Work Phone: Comment on above: Expected: 10/10/2023 (Approximate), Expires: 10/09/2024 Start: 10-04-2023 Liquid based cervica l cytology screening [facility] Start: 07-06-2023 Screening for malign ant neoplasm of cervix Pap Smear [facility] Start: 06-10-2023 Behavioral Health Screening Behavioral Health Screening [facility] Start: 05-27-2023 Procedure [facility] Start: 05-24-2023 Ambulation without limitation [facility] Start: 05-24-2023 Medical regimen orde rs management [facility] Start: 05-24-2023 Medication education [facility] Start: 05-24-2023 Patient discharge [facility] Start: 05-24-2023 Procedure discontinued [facility] Start: 05-24-2023 Taking patient vital signs [facility] Start: 05-24-2023 Vital signs measurements [facility] Start: 05-24-2023 End: 05-24-2023 [facility] Start: 05-24-2023 Anesthesia incomplete/missed ANESTH INC/MISSED AB PROC [facility] Start: 05-24-2023 Tx missed f irst trimester surgical CARE OF MISCARRIAGE [facility] Start: 05-24-2023 [facility] Start: 02-08-2023 COVID-19 Vaccine ( season) COVID-19 Vaccine ( season) [facility] Start: 2019 Screening for malign ant neoplasm of cervix Cervical Cancer Screening [facility] Start: 02-12-2016 Anxiety Screening Anxiety Screening [facility] Start: 02-12-2016 Depression Screening Depression Scre ening [facility] Start: 02-12-2016 Hepatitis C screening Hepatitis C Sc reening [facility] Start: 02-12-2016 HIV screening HIV Screening [facility] Start: 02-12-2012 Peds To Adult Transi tion Annual Assessment Peds To Adult Transition Annual Assessment [facility] Start: 2011 Varicella vaccination Varicell a Vaccines (1 of 2 - 13+ 2-dose series) [facility] Start: 2010 Peds To Adult Transi tion Initial Discussion Peds To Adult Transition Initial Discussion [facility] Start: 1998 HIV screening HIV Screening [facility] karon Beta 2 glycoprotein 1 Ab IgA and IgG and IgM panel - Serum [facility] Cardiolipin IgG and IgM panel - Serum [facility] Lupus anticoagulant assay [facility] Patient referral [facility] Work Phone: Thyroid stimulating hormone measurement [facility] Immunizations Immunization Date Immunization Notes Care Provider Fa cility 10-10-2023 tetanus toxoid, redu kaitlyn diphtheria toxoid, and acellular pertussis vaccine, adsorbed Valentin Morrissey MD Work Phone: [facility] 07-06-2020 influenza, injectabl e, quadrivalent, contains preservative Valentin Morrissey MD Work Phone: [facility] 07-06-2020 influenza virus vacc ine, unspecified formulation Valentin Morrissey MD Work Phone: [facility] 06-12-2019 influenza, injectabl e, quadrivalent, contains preservative Valentin Morrissey MD Work Phone: [facility] 04-21-2019 tuberculin skin test ; purified protein derivative solution, intradermal Valentin Morrissey MD Work Phone: [facility] 04-14-2019 tuberculin skin test ; purified protein derivative solution, intradermal Valentin Morrissey MD Work Phone: [facility] 04-22-2018 tuberculin skin test ; purified protein derivative solution, intradermal Valentin Morrissey MD Work Phone: [facility] 02-04-2018 Influenza, injectabl e, quadrivalent, preservative free Valentin Morrissey MD Work Phone: [facility] 03-04-2017 influenza virus vacc ine, unspecified formulation Valentin Morrissey MD Work Phone: [facility] 01-16-2017 tuberculin skin test ; purified protein derivative solution, intradermal Valentin Morrissey MD Work Phone: [facility] 01-09-2017 tuberculin skin test ; purified protein derivative solution, intradermal Valentin Morrissey MD Work Phone: [facility] 12-13-2015 human papilloma viru s vaccine, quadrivalent Valentin Morrissey MD Work Phone: [facility] 07-19-2015 human papilloma viru s vaccine, quadrivalent Valentin Morrissey MD Work Phone: [facility] 05-20-2015 human papilloma viru s vaccine, quadrivalent Valentin Morrissey MD Work Phone: [facility] 05-20-2015 meningococcal polysaccharide (groups A, C, Y and W-135) diphtheria toxoid conjugate vaccine (MCV4P) Valentin Morrissey MD Work Phone: [facility] 02-19-2012 meningococcal polysaccharide (groups A, C, Y and W-135) diphtheria toxoid conjugate vaccine (MCV4P) Valentin Morrissey MD Work Phone: [facility] 02-19-2012 tetanus toxoid, redu kaitlyn diphtheria toxoid, and acellular pertussis vaccine, adsorbed Valentin Morrissey MD Work Phone: [facility] 05-18-2008 influenza virus vacc ine, live, attenuated, for intranasal use Valentin Morrissey MD Work Phone: [facility] 08-16-2003 diphtheria, tetanus toxoids and acellular pertussis vaccine Valentin Morrissey MD Work Phone: [facility] 08-16-2003 measles, mumps and r ubella virus vaccine Valentin Morrissey MD Work Phone: [facility] 08-16-2003 poliovirus vaccine, inactivated Valentin Morrissey MD Work Phone: [facility] 06-26-1999 diphtheria, tetanus toxoids and acellular pertussis vaccine Valentin Morrissey MD Work Phone: [facility] 02-24-1999 haemophilus influenz ae type b vaccine, PRP-T conjugate Valentin Morrissey MD Work Phone: [facility] 02-24-1999 measles, mumps and r ubella virus vaccine Valentin Morrissey MD Work Phone: [facility] 1998 diphtheria, tetanus toxoids and acellular pertussis vaccine Valentin Morrissey MD Work Phone: [facility] 1998 haemophilus influenz ae type b vaccine, PRP-T conjugate Valentin Morrissey MD Work Phone: [facility] 1998 hepatitis B vaccine, unspecified formulation Valentin Morrissey MD Work Phone: [facility] 1998 poliovirus vaccine, inactivated Valentin Morrissey MD Work Phone: [facility] 1998 diphtheria, tetanus toxoids and acellular pertussis vaccine Valentin Morrissey MD Work Phone: [facility] 1998 haemophilus influenz ae type b vaccine, PRP-T conjugate Valentin Morrissey MD Work Phone: [facility] 1998 poliovirus vaccine, inactivated Valentin Morrissey MD Work Phone: [facility] 1998 haemophilus influenz ae type b vaccine, PRP-T conjugate Valentin Morrissey MD Work Phone: [facility] 1998 diphtheria, tetanus toxoids and acellular pertussis vaccine Valentin Morrissey MD Work Phone: [facility] 1998 poliovirus vaccine, inactivated Valentin Morrissey MD Work Phone: [facility] 1998 hepatitis B vaccine, unspecified formulation Valentin Morrissey MD Work Phone: [facility] 1998 hepatitis B vaccine, unspecified formulation Valentin Morrissey MD Work Phone: [facility] Payers Date Payer Category Payer Unknown [id number] 2024 Self-pay [id number] 2023 Unknown [id number] 2023 Unknown [id number] Unknown [facility] [id number] Unknown [facility] [id number] Unknown [id number] 2.16.8 [id number] Unknown [id number] 2.16.8 [id number] Unknown [id number] 2.16.8 [id number] Unknown [id number] 2.16.8 [id number] Unknown [id number] 2.16.8 [id number] Unknown [id number] 2.16.8 [id number] Unknown [id number] 2.16.8 [id number] Unknown [id number] 2.16.8 [id number] Unknown [id number] 2.16.8 [id number] Unknown [id number] 2.16.8 [id number] Unknown [id number] 2.16.8 [id number] Unknown [id number] 2.16.8 [id number] Unknown [id number] 2.16.8 [id number] Social History Date Type Detail Facility Start: 04-25-2023 End: 05-24-2023 Tobacco smoking status NHIS Unknown if ever smoked [facility] Start: 2000 Sex Assigned At Female [facility] Start: 05-24-2023 End: 12-20-2023 Tobacco smoking status NHIS Never smoked tobacco [facility] Start: 10-10-2023 Alcohol intake 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 Yes [facility] Are you now , , , , never or living with a partner? [facility] How often to you hav e a drink containing alcohol? Never [facility] How many standard dr inks containing alcohol do you have on a typical day? Patient does not drink [facility] Do you feel stress - tense, restless, nervous, or anxious, or unable to sleep at night because your mind is troubled all the time - these days [OSQ] Only a little [facility] (I/We) worried wheth er (my/our) food would run out before (I/we) got money to buy more. Never true [facility] Start: 03-29-2022 Gender identity Identifies as female gender (finding) [facility] Start: 12-20-2023 Tobacco use and exposure Smoke less tobacco non-user [facility] Start: 2000 Sex Assigned At Not on file [facility] Start: 08-13-2024 Sex Female (finding) [facility] Goals Date Patient Goal Desired Activity /State Mental Status Date Assessment Result Facility 05-24-2023 Cognitive function Voice/Name [facility] Work Phone: Clinical Notes 05-24-2023 to 08-21-2024 Note Date & Type Note Facility 08-21-2024 Evaluation note Diagnosis Onset Date Resolution History of miscarriage acute [facility] 2024 8:54am [facility] Work Phone: 1(825) 349-723711-21-2024 Evaluation note* Diagnosis Onset Date Resolution Status Admit Date Irregular menstrual bleeding acute April 30, 2024 1:57pm Missed acute April 30, 2024 1:57pm PCOS (polycystic ovarian syndrome) acute April 30, 2 024 1:57pm [facility] Work Phone: 1(486) 653-589407-12-2024 NoteHNO ID: [id number] Author: RUDDY PEARZA APRN.JENARO Service: ? Author Type: Nurse Practitioner Type: Progress Notes Filed: 12/20/2023 20:00 Note Text: Subjective HPI HPI Suki Lee is a 23 year old female who presents today for CC of painful rash and tingling/numbness. This started 2 days ago/worsening. Has tried nothing for relief. Symptoms are worsened by nothing. Risk factors had chicken pox as child. Denies possibility of being . [facility], denies renal/hepatic disease, denies chronic disease. .Patient presents with: Rash: Rash on numbness in right leg x 2 days No past medical history on file. No past surgical history on file. ALLERGIES Patient has no known allergies. MEDICATIONS valACYclovir (VALTREX) 1 gram tablet Take 1 tablet by mouth three times a day for 7 days. No family history on file. Social History Tobacco Use Smoking status: Never Smokeless tobacco: Never ROS Objective Blood pressure 100/58, pulse 75, temperature 37.4 ?C (99.4 ?F), resp. rate 21, weight 50.2 kg (110 lb 10.7 oz), last menstrual period 07/24/2017, SpO2 99%. Physical Exam Constitutional: General: She is not in acute distress. Appearance: She is not toxic-appearing or diaphoretic. HENT: Head: Normocephalic and atraumatic. Pulmonary: Effort: Pulmonary effort is normal. No accessory muscle usage or respiratory distress. Skin: Neurological: Mental Status: She is alert and oriented to person, place, and time. ASSESSMENT/PLAN: 1. Herpes zoster without complication - ICD9: 053.9, ICD10: B02.9 Course and contagiousness discussed. -use medication as prescribed -follow up if symptoms persist, worsen, change - VALACYCLOVIR 1 GRAM TABLET Ruddy Peraza [facility] History of Present illness Narrative* Ruddy Peraza APRN.JENARO - 12/20/2023 7:58 PM EDT Images from the original note were not included. Subjective HPI HPI Suki Lee is a 23 year old female who presents today for CC of painful rash and tingling/numbness. This started 2 days ago/worsening. Has tried nothing for relief. Symptoms are worsened bynothing. Risk factors had chicken pox as child. Denies possibility of being . [facility], denies renal/hepatic disease, denies chronic disease. .Patient presents with: Rash: Rash on numbness in right leg x 2 days No past medical history on file. No past surgical history on file. ALLERGIES Patient has no known allergies. MEDICATIONS valACYclovir (VALTREX) 1 gram tablet Take 1 tablet by mouth three times a day for 7 days. No family history on file. Social History Tobacco Use Smoking status: Never Smokeless tobacco: Never ROS Objective Blood pressure 100/58, pulse 75, temperature 37.4 C (99.4 F), resp. rate 21, weight 50.2 kg (110 lb10.7 oz), last menstrual period 07/24/2017, SpO2 99%. Physical Exam Constitutional: General: She is not in acute distress. Appearance: She is not toxic-appearing or diaphoretic. HENT: Head: Normocephalic and atraumatic. Pulmonary: Effort: Pulmonary effort is normal. No accessory muscle usage or respiratory distress. Skin: Neurological: Mental Status: She is alert and oriented to person, place, and time. ASSESSMENT/PLAN: 1. Herpes zoster without complication - ICD9: 053.9, ICD10: B02.9 Course and contagiousness discussed. -use medication as prescribed -follow up if symptoms persist, worsen, change - VALACYCLOVIR 1 GRAM TABLET Ruddy Peraza APRN.JENARO [facility] History of Present illness Narrative* Carmina Rivera MA - 10/10/2023 2:00 PM EDT Patient verified by last name and date of . * Valentin Morrissey MD - 10/10/2023 2:00 PM EDT Images from the original note were not included. 10/10/2023 Suki Lee (: 2000) is a 23 y.o. female , Established patient, here for evaluation of the following chief complaint(s): Annual Exam, Blood Work, and Health Maintenance (Hiv screening- refuse/Varicella vaccine- had chicken pox/Covid vaccine- not done /Pap- [place] [facility] [place] will send for record) ASSESSMENT/PLAN: 1. Annual physical exam Comments: Healthy female, counseled her on being healthy for conception with vitamins and folic acid 2. Screening for lipid disorders - Lipid panel 3. Immunization due - Tdap vaccine greater than or equal to 7 years old IM 4. Screening for diabetes mellitus - Comprehensive metabolic panel Follow up in about 1 year (around 10/09/2024). SUBJECTIVE/OBJECTIVE: HPI -Suki comes in today for an annual checkup, she needs fasting lab work and she also would like to have a Tdap because her are trying to conceive and she would like to have the in place before she gets . She denies any complaints at this time, see ROS. Review of Systems Constitutional: Negative for chills and fever. Respiratory: Negative for shortness of breath. Cardiovascular: Negative for chest pain and palpitations. Gastrointestinal: Negative for abdominal pain, blood in stool, constipation and diarrhea. Genitourinary: Negative for dyspareunia, dysuria, frequency, hematuria and urgency. Neurological: Negative for weakness and numbness. Psychiatric/Behavioral: Negative for dysphoric mood. The patient is not nervous/anxious. Vitals: 10/10/23 1359 BP: 99/61 Pulse: 69 SpO2: 97% Weight: 110 lb 3.2 oz (50 kg) Height: 5' 3 (1.6 m) Physical Exam Vitals and nursing note reviewed. Constitutional: General: She is not in acute distress. Appearance: Normal appearance. HENT: Head: Normocephalic. Right Ear: Tympanic membrane, ear canal and external ear normal. Left Ear: Tympanic membrane, ear canal and external ear normal. Mouth/Throat: Mouth: Mucous membranes are moist. Pharynx: Oropharynx is clear. Eyes: Extraocular Movements: Extraocular movements intact. Pupils: Pupils are equal, round, and reactive to light. Neck: Thyroid: No thyromegaly. Cardiovascular: Rate and Rhythm: Normal rate and regular rhythm. Heart sounds: Normal heart sounds. No murmur heard. Pulmonary: Effort: Pulmonary effort is normal. Breath sounds: Normal breath sounds. Abdominal: General: Bowel sounds are normal. Palpations: Abdomen is soft. Musculoskeletal: General: Normal range of motion. Cervical back: Normal range of motion. Lymphadenopathy: Cervical: No cervical adenopathy. Skin: General: Skin is warm and dry. Neurological: General: No focal deficit present. Mental Status: She is alert and oriented to person, place, and time. Deep Tendon Reflexes: Reflexes normal. Psychiatric: Mood and Affect: Mood normal. Behavior: Behavior normal. Thought Content: Thought content normal. Judgment: Judgment normal. An electronic signature was used to authenticate this note. Valentin Morrissey MD 10/10/2023 2:30 PM documented in this [facility]04-26-2024 NotePap Smear Specimen AdequacyApril 2023 11:00amComment.Satisfactory for evaluation. Endocervical and/or squamous metaplasticcells (endocervical component)are present.[facility]ACED A#[id number] General Health CenterComment on above: Satisfactory for evaluation. Endocervical and/or squamous metaplasticcells (endocervical component)are present.05-24-2023 [facility] noteWP[facility] HospitalDischarge summary Author Carolynn Ochoa [facility] May 24, 2023 7:38pm Note Date/Time May 24, 2023 7:00pm [facility] Medical Records Department [address] [place] [address] Instructions for Home/Discharge Instructions 05/24/23 1859 MR#: [id number] Acct: [id number] Name: SUKI LEE Rep #:[id number] : 2000 23 From: Carolynn madden MD PCP: Dr. Valentin Morrissey MD Status:REG [facility] Discharge Instructions Diet Discharge Diet: No restrictions Activity Discharge Activity: Return to Normal Activity, May Shower and May Take a Tub Bath (after 1 week) May resume sexual activity in: 1-2 weeks Weight Bearing Status: Weight bearing as tolerated Lifting Restrictions: none Dressing / Incision Call your doctor if you observe: Fever of 101 or Higher, Using more than 1 pad per hour, Shortness of breath and Uncontrolled pain Follow Up Care Please Follow Up With: Carolynn Ochoa MD When: Call [phone] to schedule appointment. Test Results: Test results from this visit will be discussed in further detail at your follow- up appointment, if applicable. Discharge Plan Admission Attending Provider: Carolynn Ochoa Primary Care Provider: Valentin Morrissey Discharge Orders/Prescriptions Prescriptions: No Action PNV-DHA 27 mg iron-1 mg -300 mg capsule 1 cap PO DAILY pyridoxine (vitamin B6) 50 mg tablet 50 mg PO DAILY Referrals / Follow Up: Valentin Morrissey MD [Primary Care Provider] - Disposition Disposition (needs filled in before D/C Order can be placed): Home, Self Care 05/24/231937<Electronically signed by Carolynn Ochoa MD>Carolynn Ochoa MD CC: Dr. Valentin Morrissey MD ~ Signed [facility] Work Phone: evaluation note* Diagnosis Onset Date Resolution Status Anxiety acute Lactose intolerance acute acute Seasonal allergies acute Supervision of normal first acute [facility] Work Phone: Evaluation note* Diagnosis Onset Date Resolution Status Anxiety acute Lactose intolerance acute acute Seasonal allergies acute Supervision of normal first acute Missed acute Missed acute [facility] Work Phone: Evaluation note* Diagnosis Onset Date Resolution Status Encounter for routine gynecological examination noneactive [facility] Work Phone: Evaluation note* Diagnosis Annual physical exam- Primary Routine general medical examination at a health care facility Screening for lipid disorders Immunization due Screening for diabetes mellitus [facility] Diagnosis Herpes zoster without complication- Primary Herpes zoster without mention of complication [facility] Author Carolynn Ochoa [facility] May 24, 2023 6:44pm Note Date/Time May 24, 2023 6:44pm [facility] Medical Records Department [address] [place] [address] History & Physical Exam 05/24/23 1843 MR#: [id number] Acct: [id number] Name: SUKI LEE Rep #:[id number] : 2000 23 From: Carolynn madden MD PCP: Dr. Valentin Morrissey MD Status:REG [facility] Location: [place] [address] History and Physical Intake Vital Signs 04/25/2308:59 05/24/2308:41 05/24/2308:42 Height 5 ft 3 in 5 ft 3 in 5 ft 3 in Weight: 110 lb 2 oz BMI 19.5 BP 110/73 Intake Visit Reasons: 13 WK OB Rock Crusher Required: No Is patient in pain?: No Allergies No Known Allergies Allergy (Verified 05/24/23 08:41) Medications multivitamin no.47-iron fum 27 mg-folate no.1 1 mg-dha 300 mg capsule (PNV- DHA)cap PO 04/19/23 [History Confirmed 05/24/23] Last Menstrual Period: 02/22/23 Zika: Zika virus screening: Negative : No PFSH PFSH Family History Grandfather DiabetesMother Melanoma, Onset Age: 35 Social History adopted: No household members: spouse current occupational status: employed current occupation: [employer] current occupational exposures/hazards: No pets and animals: Yes pets and animals: dog(s) history of recent travel: [place] ([place]) out of state: Yes out of country: No sexually active: Yes Smoking Status: Never smoker alcohol intake: never substance use type: does not use diet: lactose free well-balanced diet: daily or most days caffeine: No eating out: 1-3 times/week during the past year weight has: remained stable what type of physical activity do you participate in: none katerin/confucianist: Congregational seatbelt use: always do you feel safe at home: Yes additional social history: - [employer]- [employer] History 1 Elective abortions Hx Para 0 Spontaneous abortions Hx # Term Pregnancies Ectopic pregnancies Hx # Pregnancies Multiple births # of living children HPI 13 WK OB Details: SUKI LEE is a 23 year old who presents for routine OB visit. upon evaluation miscarriage diagnosed with no FHT measuring behind and no FHT seen. confirmed with Dr alfredo and amadeo taylor. OB Visit JYOTSNA Calculator Estimated Delivery Date Method Current WG Current Estimate 11/29/23 LMP (Certain) 13w 0d Expected Delivery Route/Plan Labor Preferences- CB/BF classes: [] labor support person: [] labor intervention preferences: [] pain management options preferred: [] cut cord/dad catch: [] : [] PP control planned: [] discussed possible routes of delivery and associated risks: [] special requests: [] Specific Issue/Plans Covid status: [] Flu vaccine: [] Tdap vaccine: [] Rhogam: [] LARC form signed: [] Problem list reviewed and updated with the most current plan of care details and appropriate orders placed. Relevant counseling for the gestational age provided. Continue routine care and follow up unless otherwise noted in visit notes/problem list details Initial Weight: Not Recorded Date -?-?-?-?-?-?-?-?-?-?-?-?- EGA Weight BP Urine Prot -?-?-?-?-?-?-?-?-?-?-?-?- Glucose FHR FuHt Pres Dilation -?-?-?-?-?-?-?-?-?-?-?-?- Effaced St Visit Note 04/25/23-?-?-?-?-?-?-?-?-?-?-?-?- 8w 6d 108 lb 8 oz 98/65 -?-?-?-?-?-?-?-?-?-?-?-?- 175 -?-?-?-?-?-?-?-?-?-?-?-?- KW-CRL 17. cost with dates. declines NIPT 05/24/23-?-?-?-?-?-?-?-?-?-?-?-?- 13w 0d 110 lb 2 oz 110/73 Negative -?-?-?-?-?-?-?-?-?-?-?-?- Negative 0 -?-?-?-?-?-?-?-?-?-?-?-?- LC- no HR, debris in uterus.no outline of fetus. +fluid around uterus. confirmed with JV.will obtain D&C consent signed. will be NPO. forget me not provided. LC- no HR, debris in uterus.no outline of fetus. +fluid around uterus. confirmed with JV.consulted and she discussed options and plan fo care with pt.will obtain D&C consent signed. will be NPO. forget me not provided. ACOG First Trimester First Trimester: Second Trimester Second Trimester: Signs and Symptoms of Labor, Selecting a care provider, Reproductive Life Planning & Contreception, Care Planning, Depression/Anxiety and Intimate Partner Violence; Discussed Tobacco Cessation Third Trimester Third Trimester: Pain Management Plans, Labor support person(s), Immediate Larc, Signs and Symptoms of Preeclampsia, Feeding Yes , Education and Family Medical Leave or Disability Forms ROS ROS Const Reports system reviewed and no additional complaints, except as documented Card Reports system reviewed and no additional complaints, except as documented Resp Reports system reviewed and no additional complaints, except as documented GI Reports system reviewed and no additional complaints, except as documented, Reports nausea Reports system reviewed and no additional complaints, except as documented Musc Reports system reviewed and no additional complaints, except as documented all other systems reviewed and negative Exam Exam Const General: cooperative, healthy appearing, comfortable [facility] Head: normal to inspection Nose: external nose normal Face and sinus: normal facial exam Neck Neck: normal visual inspection, full ROM, no lymphadenopathy Thyroid: thyroid normal Chest Chest palpation & inspection: normal inspection of the chest Resp Effort & Inspection: normal respiratory effort GI Inspection: normal to inspection soft NTTP Extrem General: pedal edema Results POC Urinalysis 2 Dip (Clinic) Office Urine Glucose Negative Last Edit by Raven Pitt MA on 05/24/23 08:47 Office Urine Protein Negative Last Edit by Raven Pitt MA on 05/24/23 08:47 Coding Level of Care Code OB Routine Diagnoses Missed O02.1 Assessment and Plan Assessment and Plan (1) Missed : Status: Acute Comment: 13 weeks missed AB, to obtain D&C. desires genetics Orders: Orders POC Urinalysis 2 Dip (Clinic) Today Plan Details Additional Comments: D&C today NPO consent signed. O positive blood type 05/24/231843 <Electronically signed by Carolynn Ochoa MD> Cosigner Signature (if applicable): CC: Dr. Valentin Morrissey MD; Dr. 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 Visit Encounter for routin e gynecological examination Chief Complaint Admit Date miscarriage follow up April 30 1:57pm E-ORDER August 03, 2024 3:51pm Reason for Visit Admit Date Irregular menstrual bleeding April 302023 1:57pm Missed April 30, 2024 1:57pm PCOS (polycystic ovarian syndrome) Novem 2023 1:57pm Chief Complaint Admit Date E-ORDER August 03, 2024 3:51pm Discuss SAB August 21, 2024 8:5 4am Reason for Visit Admit Date History of miscarriage August 21, 2024 8:54am Family History No Family History Records Found Relationship Condition Age at Onset Recorded Date/T olaf grandfather Diabetes mellitus Unknown mother Malignant melanoma 35 Advance Directives No Advanced Directives Records Found Advance Directive Response Recorded Date/ Time Living Will No May 24, 2 023 3:49pm Power of Blind Slat Stapling Machine Operator No May 24, 2023 3:49pm Advance Directive Response Recorded Date/ Time Living Will No May 24, 2 023 4:49pm Power of Blind Slat Stapling Machine Operator No May 24, 2023 4:49pm Summary Purpose Additional Source Comments Care Teams (unrecognized sec tion and content) Team Status: Active Member Role Status Dates Dr. Valentin Morrissey MD Family Provider Active Dr. Valentin Morrissey MD Primary Care Provider Active Team Status: Inactive Member Role Status Dates Dr. Valentin Morrissey MD Primary Care Provider, Referri ng Provider Active Ana Armstrong CNM Attending Provider Active Team Status: Inactive Member Role Status Dates Dr. Valentin Morrissey MD Primary Care Provider Active Ana Armstrong CNM Attending Provider, Referring Pro vider Active Team Status: Inactive Member Role Status Dates Dr. Valentin Morrissey MD Primary Care Provider, Referri ng Provider Active Amadeo Taylor CNM Attending Provider Active Team Status: Active Member Role Status Dates Dr. Valentin Morrissey MD Primary Care Provider Active Dr. Carolynn Ochoa MD Attending Pr ovider, Referring Provider, Other Provider Active Team Status: Inactive Member Role Status Dates Dr. Valentin Morrissey MD Primary Care Provider Active Dr. Carolynn Ochoa MD Attending Provider, Referr ing Provider Active Team Status: Inactive Member Role Status Dates Dr. Valetnin Morrissey MD Primary Care Provider, Referri ng Provider Active Dr. Laurel Gill DO Attending Provider Activ e Team Status: Inactive Member Role Status Dates Dr. Valentin Morirssey MD Primary Care Provider Active Dr. Laurel Gill DO Attending Provider, Refe rring Provider Active Sandwich Wrapper Relationship Specialty Start Date End Date Valentin Morrissey MD [address] [place] [id number] PCP - General 01/09/17 Sandwich Wrapper Relationship Specialty Start Date End Date Valentin Morrissey [address] [place] [id number] PCP - General Family Medicine 07/31/17 Sandwich Wrapper Relationship Specialty Start Date End Date Valentin Morrissey [address] [place] [address] [id number] PCP - General Family Medicine 07/31/17 Team Status: Inactive Member Role Status Dates Dr. Valentin Morrissey MD Primary Care Provider Active Start: April 15, 2024 End: April 15, 2024 Dr. Carolynn Ochoa MD Attending Provider Active Start: April 15, 2024 End: April 15, 2024 Dr. Carolynn Ochoa MD Referring Provider Active Start: April 15, 2024 End: April 15, 2024 Team Status: Inactive Member Role Status Dates Dr. Valentin Morrissey MD Primary Care Provider Active Start: April 30, 2024 End: April 30, 2024 Dr. Valentin Morrissey MD Referring Provider Active Start: April 30, 2024 End: April 30, 2024 Dr. Laurel Gill DO Attending Provider Activ e Start: April 30, 2024 End: April 30, 2024 Team Status: Inactive Member Role Status Dates Dr. Valentin Morrissey MD Primary Care Provider Active Start: July 29, 2024 End: July 29, 2024 Dr. Laurel Gill DO Attending Provider Activ e Start: July 29, 2024 End: July 29, 2024 Dr. Laurel Gill DO Referring Provider Activ e Start: July 29, 2024 End: July 29, 2024 Team Status: Inactive Member Role Status Dates Dr. Valentin Morrissey MD Primary Care Provider Active Start: July 31, 2024 End: July 31, 2024 Ana Armstrong CNM Attending Provider Active S tart: July 31, 2024 End: July 31, 2024 Ana Armstrong CNM Referring Provider Active S tart: July 31, 2024 End: July 31, 2024 Team Status: Inactive Member Role Status Dates Dr. Valentin Morrissey MD Primary Care Provider Active Start: August 03, 2024 End: August 03, 2024 Ana Armstrong CNM Attending Provider Active S tart: August 03, 2024 End: August 03, 2024 Ana Armstrong CNM Referring Provider Active S tart: August 03, 2024 End: August 03, 2024 Team Status: Inactive Member Role Status Dates Dr. Valentin Morrissey MD Primary Care Provider Active Start: August 21, 2024 End: August 21, 2024 Dr. Valentin Morrissey MD Referring Provider Active Start: August 21, 2024 End: August 21, 2024 Amadeo Taylor CNM Attending Provider Active Start: August 21, 2024 End: August 21, 2024 Team Status: Inactive Member Role Status Dates Dr. Valentin Morrissey MD Primary Care Provider Active Start: October 30, 2024 End: October 30, 2024 Dr. Carolynn Ochoa MD Attending Provider Active Start: October 30, 2024 End: October 30, 2024 Dr. Carolynn Ochoa MD Referring Provider Active Start: October 30, 2024 End: October 30, 2024 Goals (unrecognized section and content) Goals may be documented in a n alternate sectionGoals may be documented in an alternate sectionGoals may be documented in an alternate sectionGoals may be documented in an alternate section Reason for Visit (unrecogniz ed section and content) Reason Comments Annual Exam Blood Work Health Maintenance Hiv screening- refus eVaricella vaccine- had chicken poxCovid vaccine- not done Pap- done last week at [facility] will send for record Reason Comments Rash Rash on numbness in right leg x 2 days INFORMATION SOURCE (unrecogn ized section and content) DATE CREATED AUTHOR 10/27/2023 [facility] DATE CREATED AUTHOR AUTHOR'S ORGANIZ ATION 12/26/2023 [facility] DATE CREATED AUTHOR AUTHOR'S ORGANIZ ATION 11/06/2024 [facility] Source Comments (unrecognize d section and content) In the event this informatio n is protected by the Federal Confidentiality of Alcohol and Drug Abuse Patient Records regulations: The Federal rules restrict any use of the information to criminally investigate or prosecute any alcohol or drug abuse patient.[facility] the event this information is protected by the Federal Confidentiality of Alcohol and Drug Abuse Patient Records regulations: The Federal rules restrict any use of the information to criminally investigate or prosecute any alcohol or drug abuse patient.[facility] FOR RECORDS PERTAINING TO PATIENTS WHO ARE OR HAVE BEEN ENROLLED IN A CHEMICAL DEPENDENCY/SUBSTANCEABUSE PROGRAM, SOME INFORMATION MAY BE OMITTED. This clinical summary was aggregated from multiple sources. Caution should be exercised in using it in the provision of clinical care. This summary normalizes information from multiple sources, and as a consequence, information in this document may materially change the coding, format and clinical context of patient data. In addition, data may be omitted in some cases. CLINICAL DECISIONS SHOULD BE BASED ON THE PRIMARY CLINICAL RECORDS. [facility] provides no warranty or guarantee of the accuracy or completeness of information in this document.
[2025-03-13 13:11] LABS: hCG Titer Quant., Serum 105 mIU/mL (<9 non-preg)
== END | disposition home or self-care (01) ==
LOC: LAB 10:56
PROVIDERS: PCP Family Medicine; Referring Provider Advanced Practice Midwife; Visit Provider Advanced Practice Midwife
DX: Z34.90 Encounter for supervision of normal pregnancy, unspecified, unspecified trimester (principal)
CPT/HCPCS: 36415; 84702

== ENCOUNTER → 2025-05-10 | Outpatient (CLI) | payer OTHER, SELFPAY ==
[2025-05-10 16:46] LABS: Hematocrit 41.6 % (37-47); Hemoglobin 13.8 g/dL (12.0-15.0); Immature Granulocytes Count 0.020 X10^3/uL (0.0-0.0); Mean Corp Hgb Conc 33.2 g/dL (32-36); Mean Corpuscular Volume 86.8 fL (81-99); Mean Platelet Vol. 9.5 fl (6.2-12.0); NRBC Flagged by Analyzer 0 % (0-5); Platelet Count 381 K/mm3 (150-450); RBC Distribution Width CV 11.9 % (11.6-14.6); RBC Distribution Width SD 38.4 fl (35.1-43.9); Red Blood Count 4.79 M/mm3 (4.2-5.4); White Blood Count 8.1 K/mm3 (4.4-11.0)
[2025-05-10 17:58] LABS: HIV Nonreactive (Nonreactive); Hepatitis B Surface Antigen Nonreactive (Nonreactive); Hepatitis C Antibody Nonreactive (Nonreactive); Syphilis Antibodies Nonreactive (Nonreactive)
[2025-05-12 21:07] LABS: Chlamydia By Nucleic Acid AMP Negative (Negative); Gonococcus By Nucleic Acid AMP Negative (Negative)
== END | disposition home or self-care (01) ==
PROVIDERS: Obstetrics & Gynecology; PCP Family Medicine; Visit Provider Student in an Organized Health Care Education/Training Program
DX: O09.90 Supervision of high risk pregnancy, unspecified, unspecified trimester (principal); Z3A.00 Weeks of gestation of pregnancy not specified
CPT/HCPCS: 36415; 85025; 86703; 86762; 86780; 86803; 86850; 86900; 86901; 87086; 87340; 87491; 87591